=== PATIENT | male | born 1980 | race Caucasian/White ===

== ENCOUNTER → 2020-05-17 10:30 | Outpatient (BNVA) | payer MEDICARE, MEDICAID, SELFPAY | PROVIDERS: Visit Provider Nurse Practitioner Family | DX: M47.816 Spondylosis without myelopathy or radiculopathy, lumbar region (principal); M96.1 Postlaminectomy syndrome, not elsewhere classified; E66.01 Morbid (severe) obesity due to excess calories; G47.33 Obstructive sleep apnea (adult) (pediatric) | CPT/HCPCS: 99202 ==

== ENCOUNTER → 2020-06-14 13:52 | Outpatient (BNVA) | payer MEDICARE, MEDICAID, SELFPAY | PROVIDERS: Visit Provider Anesthesiology | DX: Z76.89 Persons encountering health services in other specified circumstances (principal) ==

== ENCOUNTER → 2020-07-15 13:59 | Outpatient (BNVA) | payer OTHER, MEDICARE, MEDICAID, SELFPAY | PROVIDERS: Visit Provider Anesthesiology | DX: M47.816 Spondylosis without myelopathy or radiculopathy, lumbar region (principal); M96.1 Postlaminectomy syndrome, not elsewhere classified; E66.01 Morbid (severe) obesity due to excess calories; G47.33 Obstructive sleep apnea (adult) (pediatric); Z79.891 Long term (current) use of opiate analgesic | CPT/HCPCS: 99212 ==

== ENCOUNTER → 2020-08-09 15:20 | Outpatient (BNVA) | payer OTHER, MEDICARE, MEDICAID, SELFPAY | PROVIDERS: Visit Provider Anesthesiology | DX: M47.816 Spondylosis without myelopathy or radiculopathy, lumbar region (principal); M96.1 Postlaminectomy syndrome, not elsewhere classified; E66.01 Morbid (severe) obesity due to excess calories; G47.33 Obstructive sleep apnea (adult) (pediatric) | CPT/HCPCS: 99212 ==

== ENCOUNTER → 2020-10-13 13:44 | Outpatient (BNVA) | payer OTHER, MEDICAID, SELFPAY | PROVIDERS: PCP Physician Assistant; Visit Provider Anesthesiology | DX: M47.816 Spondylosis without myelopathy or radiculopathy, lumbar region (principal); M96.1 Postlaminectomy syndrome, not elsewhere classified; E66.01 Morbid (severe) obesity due to excess calories; G47.33 Obstructive sleep apnea (adult) (pediatric) | CPT/HCPCS: 99212 ==

== ENCOUNTER → 2020-11-11 14:52 | Outpatient (BNVA) | payer OTHER, MEDICAID, SELFPAY | PROVIDERS: PCP Physician Assistant; Visit Provider Anesthesiology | DX: M47.816 Spondylosis without myelopathy or radiculopathy, lumbar region (principal); M96.1 Postlaminectomy syndrome, not elsewhere classified; E66.01 Morbid (severe) obesity due to excess calories; G47.33 Obstructive sleep apnea (adult) (pediatric); N31.9 Neuromuscular dysfunction of bladder, unspecified | CPT/HCPCS: 99212 ==

== ENCOUNTER → 2020-12-09 14:57 | Outpatient (BNVA) | payer OTHER, MEDICAID, SELFPAY | PROVIDERS: PCP Physician Assistant; Visit Provider Anesthesiology | DX: M47.816 Spondylosis without myelopathy or radiculopathy, lumbar region (principal); M96.1 Postlaminectomy syndrome, not elsewhere classified; M48.00 Spinal stenosis, site unspecified; G89.4 Chronic pain syndrome; E66.01 Morbid (severe) obesity due to excess calories; G47.33 Obstructive sleep apnea (adult) (pediatric); R19.7 Diarrhea, unspecified; N31.9 Neuromuscular dysfunction of bladder, unspecified; N39.498 Other specified urinary incontinence; Z88.0 Allergy status to penicillin; Z88.8 Allergy status to other drugs, medicaments and biological substances; Z91.041 Radiographic dye allergy status; Z91.02 Food additives allergy status | CPT/HCPCS: 99212 ==

== ENCOUNTER 2021-01-10 10:35 | Outpatient (REF) | payer OTHER, SELFPAY | END 2021-01-10 10:36 | disposition home or self-care (01) | LOC: HO.LAB 10:35 | PROVIDERS: PCP Physician Assistant; Visit Provider Anesthesiology | DX: M47.816 Spondylosis without myelopathy or radiculopathy, lumbar region (principal); M96.1 Postlaminectomy syndrome, not elsewhere classified; E66.01 Morbid (severe) obesity due to excess calories; G47.33 Obstructive sleep apnea (adult) (pediatric); Z79.891 Long term (current) use of opiate analgesic | CPT/HCPCS: 99212 ==

== ENCOUNTER → 2021-02-07 09:57 | Outpatient (BNVA) | payer OTHER, SELFPAY | PROVIDERS: PCP Physician Assistant; Visit Provider Anesthesiology | DX: M47.816 Spondylosis without myelopathy or radiculopathy, lumbar region (principal); M96.1 Postlaminectomy syndrome, not elsewhere classified; G47.33 Obstructive sleep apnea (adult) (pediatric); E66.01 Morbid (severe) obesity due to excess calories; Z79.899 Other long term (current) drug therapy | CPT/HCPCS: 99212 ==

== ENCOUNTER → 2021-03-07 09:29 | Outpatient (BNVA) | payer OTHER, SELFPAY | PROVIDERS: PCP Physician Assistant; Visit Provider Anesthesiology | DX: Z51.81 Encounter for therapeutic drug level monitoring (principal); M47.816 Spondylosis without myelopathy or radiculopathy, lumbar region; M96.1 Postlaminectomy syndrome, not elsewhere classified; E66.01 Morbid (severe) obesity due to excess calories; G47.33 Obstructive sleep apnea (adult) (pediatric); Z68.43 Body mass index [BMI] 50.0-59.9, adult | CPT/HCPCS: 99212 ==

== ENCOUNTER 2021-03-22 06:16 | Outpatient (REF) | payer OTHER, SELFPAY ==
--- NOTE | ~2021-03-22 | FL_ITS ---
EXAMINATION: XR FLUOROSCOPY WITH IMAGES CLINICAL INFORMATION: Chronic pain syndrome. COMPARISON: None. TECHNIQUE: Fluoroscopy performed by Dr. Molina. Fluoroscopy time: 0.4 minutes DAP: 12.0 Gycm2 Images: 2 FL/FL guidance in treatment room FINDINGS/IMPRESSION: Fluoroscopy was performed for procedural guidance. Please refer to the procedure report for more detailed findings.
== END 2021-03-22 06:17 | disposition home or self-care (01) ==
LOC: HO.RADIR 06:16
PROVIDERS: Visit Provider Anesthesiology
DX: G89.4 Chronic pain syndrome (principal); M48.00 Spinal stenosis, site unspecified
CPT/HCPCS: 62323; Q9967

== ENCOUNTER → 2021-03-28 09:26 | Outpatient (BNVA) | payer OTHER, SELFPAY | PROVIDERS: PCP Physician Assistant; Visit Provider Anesthesiology | DX: M47.816 Spondylosis without myelopathy or radiculopathy, lumbar region (principal); M96.1 Postlaminectomy syndrome, not elsewhere classified; E66.01 Morbid (severe) obesity due to excess calories; G47.33 Obstructive sleep apnea (adult) (pediatric) | CPT/HCPCS: 99212 ==

== ENCOUNTER 2021-07-08 05:57 | Day surgery (SDC) | payer OTHER, SELFPAY ==
[2021-07-04 14:57] VITALS: BMI 52.4
[2021-07-05 09:49] VITALS: BMI 51.6
--- NOTE | 2021-07-06 12:45 | P.CONAN_ITS ---
Documented by User: Lindsay Brantley NP 07/06/21 12:47 HPI - Anesthesia Eval Consult details Narrative: 41yo M for ?Intrathecal Drug Delivery Implant *Multiple Med Allergies* PMFSH Active Problems Active Problems: All Active Problems (Updated 07/05/21 @ 09:54 by Radha Camara, NEHEMIAS) Facet arthropathy, lumbar (Acute) Post laminectomy syndrome (Acute) Morbid obesity (Acute) Obstructive sleep apnea (Acute) Chronic pain syndrome (Acute) Neurogenic bladder (Acute) Central stenosis of spinal canal (Acute) Past Medical History Medical History (Updated 07/05/21 @ 09:54 by Radha Camara, NEHEMIAS) Anxiety Asthma Central stenosis of spinal canal Chronic back pain Chronic pain syndrome Depression Diabetes Elevated cholesterol HTN (hypertension) Neurogenic bladder On pre-exposure prophylaxis for HIV Osteoarthritis Postoperative nausea Surgical History Surgical History (Updated 07/05/21 @ 09:47 by Radha Camara RN) History of back surgery Hx of cholecystectomy Hx of toe surgery Social History Social History Household Members Other:: aunt Are you a primary resident care supervisor to a significant other at home: No Do you presently have visiting nurse or other home services: No Patient Tobacco Use Status: Former Tobacco user Quit Date: 2001 Tobacco use type: Cigarette Use of substances other than those prescribed or required for medical reasons: No Have you been hit, kicked, punched, or otherwise hurt by someone within the past year? If so, by whom?: No Are you DNR?: No Advance Directives: No Advance Directives Information Provided: Yes Advance Directives on File: No Meds Allergies Allergy/AdvReac Type Severity Reaction Status Date / Time cephalexin Allergy Severe vomiting,ra Verified 07/08/21 06:18 sh Iodinated Contrast Allergy Severe DIFFICULTY Verified 07/08/21 06:18 Media [IV DYE, IODINE BREATHING CONTAINING CONTRAST ] propranolol Allergy Severe DIFFICULTY Verified 07/08/21 06:18 [PROPRANOLOL] BREATHING AND CP tramadol [From Allergy Severe VOMITING Verified 07/08/21 06:18 ULTRAM] AND SEVERE HEADACHES verapamil Allergy Severe severe Verified 07/08/21 06:18 chest pain thuan Allergy Intermediate RASH Verified 07/08/21 06:18 penicillin V Allergy Unknown Pt does Verified 07/08/21 06:18 not remember hydromorphone AdvReac Severe migraine/na Verified 07/08/21 06:18 [From Dilaudid] usea sumatriptan [From AdvReac Severe NAUSEA & Verified 07/08/21 06:18 IMITREX] VOMITING Home Medications Medication Instructions Recorded Confirmed Last Taken Type atorvastatin 40 40 mg PO BEDTIME 05/17/20 07/05/21 Unknown History mg tablet emtricitabine 200 1 tab PO DAILY 05/17/20 07/05/21 Unknown History mg-tenofovir disoproxil fumarate 300 mg tablet (Truvada) fluticasone 1 puff 05/17/20 07/05/21 Unknown History propionate 110 INHALATION BID mcg/actuation HFA aerosol inhaler (Flovent HFA) lisinopril 40 mg 40 mg PO DAILY 05/17/20 07/05/21 Unknown History tablet metformin 1,000 1,000 mg PO BID 05/17/20 07/05/21 Unknown History mg tablet prochlorperazine 10 mg PO Q8H PRN 05/17/20 07/05/21 Unknown History maleate 10 mg tablet (Compazine) venlafaxine 150 187.5 mg PO 05/17/20 07/05/21 Unknown History mg DAILY capsule,extended release 24 hr (Effexor XR) pregabalin 150 mg 150 mg PO TID 01/10/21 07/05/21 Unknown History capsule liraglutide 0.6 1.2 mg SUBCUT 07/05/21 07/05/21 Unknown History mg/0.1 mL (18 DAILY mg/3 mL) subcutaneous pen injector (Victoza 3-Cruz) clonidine HCl 0.1 1 tab PO BID 07/08/21 07/08/21 Unknown History mg tablet Exam Exam Date and Time: July 06, 2021 1245 Height,Weight and Vital Signs: Height 6 ft 2 in Weight 182.344 kg Assessment and Plan Assessment Anesthesia Assessment: Chart Reviewed Documented by User: Maikol Rm MD 07/08/21 07:08 [facility] Past Medical History Medical History (Updated 07/05/21 @ 09:54 by Radha Camara RN) Anxiety Asthma Central stenosis of spinal canal Chronic back pain Chronic pain syndrome Depression Diabetes Elevated cholesterol HTN (hypertension) Neurogenic bladder On pre-exposure prophylaxis for HIV Osteoarthritis Postoperative nausea Family History Family history of problems with anesthesia: No Surgical History Surgical History (Updated 07/05/21 @ 09:47 by Radha Camara RN) History of back surgery Hx of cholecystectomy Hx of toe surgery History of Problems with Anesthesia: No Social History Social History Household Members Other:: aunt Are you a primary resident care supervisor to a significant other at home: No Do you presently have visiting nurse or other home services: No Patient Tobacco Use Status: Former Tobacco user Quit Date: 2001 Tobacco use type: Cigarette Use of substances other than those prescribed or required for medical reasons: No Have you been hit, kicked, punched, or otherwise hurt by someone within the past year? If so, by whom?: No Are you DNR?: No Advance Directives: No Advance Directives Information Provided: Yes Advance Directives on File: No Meds Allergies Allergy/AdvReac Type Severity Reaction Status Date / Time cephalexin Allergy Severe vomiting,ra Verified 07/08/21 06:18 sh Iodinated Contrast Allergy Severe DIFFICULTY Verified 07/08/21 06:18 Media [IV DYE, IODINE BREATHING CONTAINING CONTRAST ] propranolol Allergy Severe DIFFICULTY Verified 07/08/21 06:18 [PROPRANOLOL] BREATHING AND CP tramadol [From Allergy Severe VOMITING Verified 07/08/21 06:18 ULTRAM] AND SEVERE HEADACHES verapamil Allergy Severe severe Verified 07/08/21 06:18 chest pain thuan Allergy Intermediate RASH Verified 07/08/21 06:18 penicillin V Allergy Unknown Pt does Verified 07/08/21 06:18 not remember hydromorphone AdvReac Severe migraine/na Verified 07/08/21 06:18 [From Dilaudid] usea sumatriptan [From AdvReac Severe NAUSEA & Verified 07/08/21 06:18 IMITREX] VOMITING Home Medications Medication Instructions Recorded Confirmed Last Taken Type atorvastatin 40 40 mg PO BEDTIME 05/17/20 07/05/21 Unknown History mg tablet emtricitabine 200 1 tab PO DAILY 05/17/20 07/05/21 Unknown History mg-tenofovir disoproxil fumarate 300 mg tablet (Truvada) fluticasone 1 puff 05/17/20 07/05/21 Unknown History propionate 110 INHALATION BID mcg/actuation HFA aerosol inhaler (Flovent HFA) lisinopril 40 mg 40 mg PO DAILY 05/17/20 07/05/21 Unknown History tablet metformin 1,000 1,000 mg PO BID 05/17/20 07/05/21 Unknown History mg tablet prochlorperazine 10 mg PO Q8H PRN 05/17/20 07/05/21 Unknown History maleate 10 mg tablet (Compazine) venlafaxine 150 187.5 mg PO 05/17/20 07/05/21 Unknown History mg DAILY capsule,extended release 24 hr (Effexor XR) pregabalin 150 mg 150 mg PO TID 01/10/21 07/05/21 Unknown History capsule liraglutide 0.6 1.2 mg SUBCUT 07/05/21 07/05/21 Unknown History mg/0.1 mL (18 DAILY mg/3 mL) subcutaneous pen injector (Victoza 3-Cruz) clonidine HCl 0.1 1 tab PO BID 07/08/21 07/08/21 Unknown History mg tablet Exam Airway Mallampati Class: IV TM Dist: >3cm Neck ROM: Full Assessment and Plan Assessment Anesthesia Assessment: Anesthesia Plan Discussed Final Anesthetic Review Family History of Problems with Anesthesia: No History of Problems with Anesthesia: No NPO: Yes ASA Class: III Final Preanesthetic Review: No Changes in Pt Med Stat, Meds/Allgs Chart Reviewed, Consent Obtained/Reviewed and Anes Risks/Benef Reviewed Patient Risk: Intermediate Procedure Risk: Intermediate Anesthetic Plan Anesthetic Plan: GA Disposition: Standard PACU
--- NOTE | 2021-07-06 12:45 | HO.ANESPROP2 ---
Documented by User: Lindsay Brantley NP 07/06/21 12:47 HPI - Anesthesia Eval Consult details Narrative: 41yo M for ?Intrathecal Drug Delivery Implant *Multiple Med Allergies* PMFSH Active Problems Active Problems: All Active Problems (Updated 07/05/21 @ 09:54 by Radha Camara, NEHEMIAS) Facet arthropathy, lumbar (Acute) Post laminectomy syndrome (Acute) Morbid obesity (Acute) Obstructive sleep apnea (Acute) Chronic pain syndrome (Acute) Neurogenic bladder (Acute) Central stenosis of spinal canal (Acute) Past Medical History Medical History (Updated 07/05/21 @ 09:54 by Radha Camara, NEHEMIAS) Anxiety Asthma Central stenosis of spinal canal Chronic back pain Chronic pain syndrome Depression Diabetes Elevated cholesterol HTN (hypertension) Neurogenic bladder On pre-exposure prophylaxis for HIV Osteoarthritis Postoperative nausea Surgical History Surgical History (Updated 07/05/21 @ 09:47 by Radha Camara RN) History of back surgery Hx of cholecystectomy Hx of toe surgery Social History Social History Household Members Other:: aunt Are you a primary career based intervention coordinator to a significant other at home: No Do you presently have visiting nurse or other home services: No Patient Tobacco Use Status: Former Tobacco user Quit Date: 2001 Tobacco use type: Cigarette Use of substances other than those prescribed or required for medical reasons: No Have you been hit, kicked, punched, or otherwise hurt by someone within the past year? If so, by whom?: No Are you DNR?: No Advance Directives: No Advance Directives Information Provided: Yes Advance Directives on File: No Meds Allergies Allergy/AdvReac Type Severity Reaction Status Date / Time cephalexin Allergy Severe vomiting,ra Verified 07/08/21 06:18 sh Iodinated Contrast Media Allergy Severe DIFFICULTY Verified 07/08/21 06:18 [IV DYE, IODINE CONTAINING BREATHING CONTRAST ] propranolol [PROPRANOLOL] Allergy Severe DIFFICULTY Verified 07/08/21 06:18 BREATHING AND CP tramadol [From ULTRAM] Allergy Severe VOMITING Verified 07/08/21 06:18 AND SEVERE HEADACHES verapamil Allergy Severe severe Verified 07/08/21 06:18 chest pain thuan Allergy Intermediate RASH Verified 07/08/21 06:18 penicillin V Allergy Unknown Pt does Verified 07/08/21 06:18 not remember hydromorphone [From Dilaudid] AdvReac Severe migraine/na Verified 07/08/21 06:18 usea sumatriptan [From IMITREX] AdvReac Severe NAUSEA & Verified 07/08/21 06:18 VOMITING Home Medications Medication Instructions Recorded Confirmed Last Taken Type atorvastatin 40 mg tablet 40 mg PO BEDTIME 05/17/20 07/05/21 Unknown History emtricitabine 200 mg-tenofovir 1 tab PO DAILY 05/17/20 07/05/21 Unknown History disoproxil fumarate 300 mg tablet (Truvada) fluticasone propionate 110 1 puff INHALATION BID 05/17/20 07/05/21 Unknown History mcg/actuation HFA aerosol inhaler (Flovent HFA) lisinopril 40 mg tablet 40 mg PO DAILY 05/17/20 07/05/21 Unknown History metformin 1,000 mg tablet 1,000 mg PO BID 05/17/20 07/05/21 Unknown History prochlorperazine maleate 10 mg 10 mg PO Q8H PRN 05/17/20 07/05/21 Unknown History tablet (Compazine) venlafaxine 150 mg 187.5 mg PO DAILY 05/17/20 07/05/21 Unknown History capsule,extended release 24 hr (Effexor XR) pregabalin 150 mg capsule 150 mg PO TID 01/10/21 07/05/21 Unknown History liraglutide 0.6 mg/0.1 mL (18 mg/3 1.2 mg SUBCUT DAILY 07/05/21 07/05/21 Unknown History mL) subcutaneous pen injector (Victoza 3-Cruz) clonidine HCl 0.1 mg tablet 1 tab PO BID 07/08/21 07/08/21 Unknown History Exam Exam Date and Time: July 06, 2021 1245 Height,Weight and Vital Signs: Height 6 ft 2 in Weight 182.344 kg Assessment and Plan Assessment Anesthesia Assessment: Chart Reviewed Documented by User: Maikol Rm MD 07/08/21 07:08 [facility] Past Medical History Medical History (Updated 07/05/21 @ 09:54 by Radha Camara RN) Anxiety Asthma Central stenosis of spinal canal Chronic back pain Chronic pain syndrome Depression Diabetes Elevated cholesterol HTN (hypertension) Neurogenic bladder On pre-exposure prophylaxis for HIV Osteoarthritis Postoperative nausea Family History Family history of problems with anesthesia: No Surgical History Surgical History (Updated 07/05/21 @ 09:47 by Radha Camara RN) History of back surgery Hx of cholecystectomy Hx of toe surgery History of Problems with Anesthesia: No Social History Social History Household Members Other:: aunt Are you a primary career based intervention coordinator to a significant other at home: No Do you presently have visiting nurse or other home services: No Patient Tobacco Use Status: Former Tobacco user Quit Date: 2001 Tobacco use type: Cigarette Use of substances other than those prescribed or required for medical reasons: No Have you been hit, kicked, punched, or otherwise hurt by someone within the past year? If so, by whom?: No Are you DNR?: No Advance Directives: No Advance Directives Information Provided: Yes Advance Directives on File: No Meds Allergies Allergy/AdvReac Type Severity Reaction Status Date / Time cephalexin Allergy Severe vomiting,ra Verified 07/08/21 06:18 sh Iodinated Contrast Media Allergy Severe DIFFICULTY Verified 07/08/21 06:18 [IV DYE, IODINE CONTAINING BREATHING CONTRAST ] propranolol [PROPRANOLOL] Allergy Severe DIFFICULTY Verified 07/08/21 06:18 BREATHING AND CP tramadol [From ULTRAM] Allergy Severe VOMITING Verified 07/08/21 06:18 AND SEVERE HEADACHES verapamil Allergy Severe severe Verified 07/08/21 06:18 chest pain thuan Allergy Intermediate RASH Verified 07/08/21 06:18 penicillin V Allergy Unknown Pt does Verified 07/08/21 06:18 not remember hydromorphone [From Dilaudid] AdvReac Severe migraine/na Verified 07/08/21 06:18 usea sumatriptan [From IMITREX] AdvReac Severe NAUSEA & Verified 07/08/21 06:18 VOMITING Home Medications Medication Instructions Recorded Confirmed Last Taken Type atorvastatin 40 mg tablet 40 mg PO BEDTIME 05/17/20 07/05/21 Unknown History emtricitabine 200 mg-tenofovir 1 tab PO DAILY 05/17/20 07/05/21 Unknown History disoproxil fumarate 300 mg tablet (Truvada) fluticasone propionate 110 1 puff INHALATION BID 05/17/20 07/05/21 Unknown History mcg/actuation HFA aerosol inhaler (Flovent HFA) lisinopril 40 mg tablet 40 mg PO DAILY 05/17/20 07/05/21 Unknown History metformin 1,000 mg tablet 1,000 mg PO BID 05/17/20 07/05/21 Unknown History prochlorperazine maleate 10 mg 10 mg PO Q8H PRN 05/17/20 07/05/21 Unknown History tablet (Compazine) venlafaxine 150 mg 187.5 mg PO DAILY 05/17/20 07/05/21 Unknown History capsule,extended release 24 hr (Effexor XR) pregabalin 150 mg capsule 150 mg PO TID 01/10/21 07/05/21 Unknown History liraglutide 0.6 mg/0.1 mL (18 mg/3 1.2 mg SUBCUT DAILY 07/05/21 07/05/21 Unknown History mL) subcutaneous pen injector (Victoza 3-Cruz) clonidine HCl 0.1 mg tablet 1 tab PO BID 07/08/21 07/08/21 Unknown History Exam Airway Mallampati Class: IV TM Dist: >3cm Neck ROM: Full Assessment and Plan Assessment Anesthesia Assessment: Anesthesia Plan Discussed Final Anesthetic Review Family History of Problems with Anesthesia: No History of Problems with Anesthesia: No NPO: Yes ASA Class: III Final Preanesthetic Review: No Changes in Pt Med Stat, Meds/Allgs Chart Reviewed, Consent Obtained/Reviewed and Anes Risks/Benef Reviewed Patient Risk: Intermediate Procedure Risk: Intermediate Anesthetic Plan Anesthetic Plan: GA Disposition: Standard PACU
--- NOTE | 2021-07-07 14:02 | MHC.SHP ---
Pre-Procedural Eval Section A Date of Service: 07/07/21 The patient is an INPATIENT: No Changes since office visit: Yes Patient answered all questions The History & Physical has been completed within 30 days and I have reviewed it.: No Section B Chief Complaint: Chronic Pain syndrome, Post laminectomy syndrome Details of Present Illness: as above Relevant Family History (Specify if Yes): No Relevant Social History: None Present Medications: see Short Stay Collaborative assessment Medical History: Significant History History of Previous Operations: Relevant previous surgery/procedure and date(s) Allergies: Allergies Allergy/AdvReac Type Severity Reaction Status Date / Time cephalexin Allergy Severe vomiting,ra Verified 07/05/21 10:00 sh Iodinated Contrast Media Allergy Severe DIFFICULTY Verified 07/05/21 10:00 [IV DYE, IODINE CONTAINING BREATHING CONTRAST ] propranolol [PROPRANOLOL] Allergy Severe DIFFICULTY Verified 07/05/21 10:00 BREATHING AND CP tramadol [From ULTRAM] Allergy Severe VOMITING Verified 07/05/21 10:00 AND SEVERE HEADACHES verapamil Allergy Severe severe Verified 07/05/21 10:00 chest pain thuan Allergy Intermediate RASH Verified 07/05/21 10:00 penicillin V Allergy Unknown Pt does Verified 07/05/21 10:00 not remember hydromorphone [From Dilaudid] AdvReac Severe migraine/na Verified 07/05/21 10:00 usea sumatriptan [From IMITREX] AdvReac Severe NAUSEA & Verified 07/05/21 10:00 VOMITING Review of Systems Sugical H&P ROS: Yes, Specify: Constitution ( Morbid obesity) Exam Surgical H&P Exam: Normal: HEENT, Normal: Heart, Normal: Lungs, Normal: Extremities, Normal: Skin and Normal: Neurological and Significant Findings: Abdomen ( greatly enlarged secondary to fat) Plan Diagnosis/Plan: Unchanged I have reviewed the history and physical and performed a pertinent physical examination on my patient. No changes have occurred unless specified.
[2021-07-08] VITALS (7 sets, daily range): BP systolic 128–181; BP diastolic 80–101; PULSE 70–96; RESP 16–18; TEMP 36.4–36.9; O2SAT 90–98
--- NOTE | ~2021-07-08 | FL_ITS ---
EXAMINATION: XR FLUOROSCOPY WITH IMAGES CLINICAL INFORMATION: Intrathecal drug implant COMPARISON: Previous exam March 2021 TECHNIQUE: Fluoroscopy performed by Dr. Govind Molina. Fluoroscopy time: 0.7 minutes DAP: 16 mGycm2 Images: 2 FINDINGS: There are postoperative changes to the lumbar spine. PA image demonstrates catheter projecting over the central lower thoracic and upper lumbar spine. FL/FL guidance in OR IMPRESSION: Fluoroscopy guidance for pain management procedure.
[2021-07-08 06:40] LABS: Glucose, Whole Blood 121 mg/dL (60-115)
[2021-07-08] MEDS: Lactated Ringers 1,000 ML 100 ML IVCONT (06:46)
--- NOTE | 2021-07-08 10:53 | P.BOP_ITS ---
Brief Operative Note Date of Service: 07/08/21 Pre-op diagnosis: postlaminectomy syndrome, chronic pain syndrome. Post-op diagnosis: same Procedure: Implantation of intrathecal drug delivery system pain pump [employer] and intrathecal catheter Ascenda ( [employer]). Implants: As above Surgeon: Govind Molina MD Anesthesia: GETA Was an Compressor Battery Pellets used for this Procedure?: No Estimated blood loss (mL): 38 Pathology: none sent Condition: stable Disposition: PACU
--- NOTE | 2021-07-08 10:55 | P.OP_ITS ---
Operative Note Operative Note Date of Service: 07/08/21 Narrative: After obtaining informed consent and explaining to the patient risks, benefits and alternatives to treat his pain, the patient was brought up to the operating room where he was positioned supine on the stretcher.? [place] [employer] monitors were applied and general anesthesia was induced with endotracheal intubation.? After that the patient was transferred to the operating table in the prone positioon.? All pressure points were protected.? The patient received antibiotic clindamycin 900 mg intravenously 30 minutes before incision. Time-out was performed delineating correct site and side of the procedure, name and date of of the patient, risk of fire, need for antibiotic prophylaxis risk of DVT and need for DVT prophylaxis. ? After that the patient entire back? and left upper buttock were prepped with Chloraprep and draped with full body drape including ioban film. Sterilely drape C-arm was brought over the OR field and square pictures of the L1, L2, L3 vertebrae were demonstrated on the screen. hardware was noted in vertebra is L2 through L5 in the form of pedicle screws and fixation rods. Also intra vertebral spacers replacing the discs were noted on the screen.the entrance p oint? for the catheter was chosen as the L1-L2 interspace Since it is the only entrance point available for the insertion. In the strict midline fashion 8.5 cm vertical skin incision was made with #10 scalpel. The incision was widened with the Weitlaner retractor and deepened with electrocautery. Thorough hemostasis was obtained using electrocautery. The prevertebral fascia was freed from overlaying tissues. After that 100 mm introducer spinal 16 g needle was incerted under x-ray guidance in the projection of the right L3 pedicle on AP view. The needle advanced under the x- ray guidance with intemittent A-P? and lateral pictures toward the spinal canal. When on the lateral view the needle entered the spinal canal the stylet was removed and the clear flow of the CSF was obtain through the needle hub. Intrathecal Ascenda catheter was inserted through the needle and advanced under the x-ray guidance toward the T8 mid body vertebral body projection. The stylet was removed from the catheter and the flow of CSF fluid straw colored and clear was observed coming from the catheter.? Purse-string suture was applied surrounding? the a needle and it was tied.? After that the needle was withdrawn with care taken to keep the catheter in place.? Anchoring device was dislodged on the catheter and advanced until it met prevertebral fascia.? It was engaged on the body of the catheter.? Two anchoring Tycron sutures were used to suture left wing of the anchor to prevertebral fascia and 2 anchoring sutures Tycron was used to stitch in the right wing of anchoring device to prevertebral fascia. ?After that the thorough irrigation of the wound was performed and wound was packed with vancomycin soaked 4 x 4. Attention then was concentrated on the patient's left upper buttock.Sterilely draped C-arm was brought over the operative field again and position of the patient's ? Left iliac crest was demonstrated on the screen.? 2 cm below the projection of the? left iliac crest? to the skin of the local anesthetic lidocaine plus bupivacaine 1-1 was injected in the linear horizontal fashion.? After that 10 cm incision was performed in patient's? left upper buttock alongside the injected line. ? Thorough hemostasis was obtained using cautery device.? After that the wound was widened and made 3 cm deep .? The wound was extended medially and laterally as well as caudally and cranially to form the space to accommodate the body of the pump.? Thorough hemostasis was performed.? The wound was irrigated with vancomycin containing normal saline and then tunneling device was used to connect both wounds and dislodged the intrathecal catheter into the side wound.? The catheter was trimmed appropriately after that and sutureless connection device was mounted on the catheter.? After that sutureless connection device was connected to the pump.? Aspiration of the side port of the pump revealed clear flow of CSF.? Two anchoring 1-0 Tycron sutures were applied in most SUPERIOR MEDIAL AND SUPERIOR LATERAL CORNERS OF THE WOUND .? After that the sutures were connected to the brackets on the body of the pump, intrathecal catheter was gathered behind the body of the pump and pump was dislodged into the wound.? After that the anchoring sutures were tied.? After that noncoring needle was used again to reach side port of the pump in clear flow of CSF 0.5 mL was demonstrated in the syringe connected to the noncoring needle. ? Thorough irrigation was performed again in both wounds.? Thorough hemostasis was verified.? 0 polisorb sutures were used to close both wounds, 2-0 suture of the same nature were used to approximate the skin.? Watson were applied to the skin line and Bacitracin ointment was applied to the staple lines.? Sterile dressing with sterile 4x4s was performed, abdominal binder was applied.? Upon completion of the procedure patient was awaken extubated and taken outside of the operating room to recovery room where HE recovered uneventfully.? HE went home without immediate complications.
[2021-07-08] MEDS: oxyCODONE HCl Immed Release 5 MG TABLET 10 MG PO (11:11)
== END 2021-07-08 12:34 | disposition home or self-care (01) ==
PROVIDERS: PCP Physician Assistant; Visit Provider Anesthesiology
PROC: (CPT 62350; principal; 2021-07-08 07:30)
DX: M47.816 Spondylosis without myelopathy or radiculopathy, lumbar region (principal); M96.1 Postlaminectomy syndrome, not elsewhere classified; G89.4 Chronic pain syndrome; M48.061 Spinal stenosis, lumbar region without neurogenic claudication; N31.9 Neuromuscular dysfunction of bladder, unspecified; I10 Essential (primary) hypertension; E11.9 Type 2 diabetes mellitus without complications; G47.33 Obstructive sleep apnea (adult) (pediatric); F32.9 Major depressive disorder, single episode, unspecified; E66.01 Morbid (severe) obesity due to excess calories; Z68.43 Body mass index [BMI] 50.0-59.9, adult; Z79.899 Other long term (current) drug therapy; Z79.84 Long term (current) use of oral hypoglycemic drugs; Z90.49 Acquired absence of other specified parts of digestive tract; Z88.0 Allergy status to penicillin; Z88.8 Allergy status to other drugs, medicaments and biological substances; Z91.041 Radiographic dye allergy status; Z87.891 Personal history of nicotine dependence
CPT/HCPCS: 62350; 62362; 82947; C1755; C1772; J1100; J2250; J2405; J2765; J3010; J3370

== ENCOUNTER → 2021-07-14 09:27 | Outpatient (BNVA) | payer OTHER, SELFPAY | PROVIDERS: PCP Physician Assistant; Visit Provider Anesthesiology | DX: M47.816 Spondylosis without myelopathy or radiculopathy, lumbar region (principal); M96.1 Postlaminectomy syndrome, not elsewhere classified; E66.01 Morbid (severe) obesity due to excess calories; G47.33 Obstructive sleep apnea (adult) (pediatric) | CPT/HCPCS: 99212 ==

== ENCOUNTER → 2021-07-21 09:25 | Outpatient (BNVA) | payer OTHER, SELFPAY | PROVIDERS: PCP Physician Assistant; Visit Provider Anesthesiology | DX: M47.816 Spondylosis without myelopathy or radiculopathy, lumbar region (principal); M96.1 Postlaminectomy syndrome, not elsewhere classified; E66.01 Morbid (severe) obesity due to excess calories; G47.33 Obstructive sleep apnea (adult) (pediatric) | CPT/HCPCS: 99212 ==

== ENCOUNTER → 2021-08-08 16:28 | Outpatient (BNVA) | payer OTHER, SELFPAY | PROVIDERS: PCP Physician Assistant; Visit Provider Anesthesiology | DX: M47.816 Spondylosis without myelopathy or radiculopathy, lumbar region (principal); M96.1 Postlaminectomy syndrome, not elsewhere classified; E66.01 Morbid (severe) obesity due to excess calories; Z68.43 Body mass index [BMI] 50.0-59.9, adult; G47.33 Obstructive sleep apnea (adult) (pediatric); Z79.899 Other long term (current) drug therapy; Z98.890 Other specified postprocedural states | CPT/HCPCS: 99212 ==

== ENCOUNTER 2021-08-16 05:59 | Outpatient (REF) | payer OTHER, SELFPAY | END 2021-08-16 06:00 | disposition home or self-care (01) | LOC: HO.RADIR 05:59 | PROVIDERS: Visit Provider Anesthesiology | DX: M47.816 Spondylosis without myelopathy or radiculopathy, lumbar region (principal); M96.1 Postlaminectomy syndrome, not elsewhere classified; E66.01 Morbid (severe) obesity due to excess calories; G47.33 Obstructive sleep apnea (adult) (pediatric) | CPT/HCPCS: 62370 ==

== ENCOUNTER 2021-09-27 06:11 | Outpatient (REF) | payer OTHER, SELFPAY | END 2021-09-27 06:12 | disposition home or self-care (01) | LOC: HO.RADIR 06:11 | PROVIDERS: Visit Provider Anesthesiology | DX: Z13.89 Encounter for screening for other disorder (principal) ==

== ENCOUNTER → 2021-10-05 15:48 | Outpatient (BNVA) | payer OTHER, SELFPAY | PROVIDERS: PCP Physician Assistant; Visit Provider Nurse Practitioner Family | DX: Z45.1 Encounter for adjustment and management of infusion pump (principal); M47.816 Spondylosis without myelopathy or radiculopathy, lumbar region; M96.1 Postlaminectomy syndrome, not elsewhere classified; E66.01 Morbid (severe) obesity due to excess calories; Z97.8 Presence of other specified devices; Z68.43 Body mass index [BMI] 50.0-59.9, adult | CPT/HCPCS: 99212 ==

== ENCOUNTER 2021-10-26 06:11 | Outpatient (REF) | payer OTHER, SELFPAY | END 2021-10-26 06:12 | disposition home or self-care (01) | LOC: HO.RADIR 06:11 | PROVIDERS: Visit Provider Internal Medicine | DX: Z45.1 Encounter for adjustment and management of infusion pump (principal); Z97.8 Presence of other specified devices | CPT/HCPCS: 62370 ==

== ENCOUNTER → 2021-11-03 12:47 | Outpatient (BNVA) | payer OTHER, SELFPAY | PROVIDERS: PCP Physician Assistant; Visit Provider Internal Medicine | DX: Z97.8 Presence of other specified devices (principal) | CPT/HCPCS: 99212 ==

== ENCOUNTER → 2021-11-11 15:32 | Outpatient (BNVA) | payer OTHER, SELFPAY | PROVIDERS: Visit Provider Nurse Practitioner Family | DX: Z13.89 Encounter for screening for other disorder (principal) | CPT/HCPCS: Q3014 ==

== ENCOUNTER → 2021-11-17 13:39 | Outpatient (BNVA) | payer OTHER, SELFPAY | PROVIDERS: PCP Physician Assistant; Visit Provider Internal Medicine | DX: G89.4 Chronic pain syndrome (principal); Z97.8 Presence of other specified devices | CPT/HCPCS: 62370 ==

== ENCOUNTER → 2021-11-30 11:21 | Outpatient (BNVA) | payer OTHER, SELFPAY | PROVIDERS: PCP Physician Assistant; Visit Provider Anesthesiology | DX: G89.4 Chronic pain syndrome (principal); Z97.8 Presence of other specified devices | CPT/HCPCS: 99212 ==

== ENCOUNTER → 2022-01-02 10:52 | Outpatient (BNVA) | payer OTHER, SELFPAY | PROVIDERS: PCP Physician Assistant; Visit Provider Anesthesiology | DX: M47.816 Spondylosis without myelopathy or radiculopathy, lumbar region (principal); M96.1 Postlaminectomy syndrome, not elsewhere classified; E66.01 Morbid (severe) obesity due to excess calories; G47.33 Obstructive sleep apnea (adult) (pediatric); Z68.43 Body mass index [BMI] 50.0-59.9, adult | CPT/HCPCS: 99212 ==

== ENCOUNTER → 2022-02-06 12:42 | Outpatient (BNVA) | payer OTHER, SELFPAY | PROVIDERS: PCP Physician Assistant; Visit Provider Anesthesiology | DX: M47.816 Spondylosis without myelopathy or radiculopathy, lumbar region (principal); M96.1 Postlaminectomy syndrome, not elsewhere classified; E66.01 Morbid (severe) obesity due to excess calories; G47.33 Obstructive sleep apnea (adult) (pediatric); Z45.1 Encounter for adjustment and management of infusion pump; Z68.43 Body mass index [BMI] 50.0-59.9, adult | CPT/HCPCS: 62370; 99212 ==

== ENCOUNTER → 2022-04-17 12:54 | Outpatient (BNVA) | payer OTHER, SELFPAY | PROVIDERS: PCP Physician Assistant; Visit Provider Anesthesiology | DX: M47.816 Spondylosis without myelopathy or radiculopathy, lumbar region (principal); M96.1 Postlaminectomy syndrome, not elsewhere classified; E66.01 Morbid (severe) obesity due to excess calories; G47.33 Obstructive sleep apnea (adult) (pediatric) | CPT/HCPCS: 62370; 99212 ==

== ENCOUNTER → 2022-06-21 12:44 | Outpatient (BNVA) | payer OTHER, SELFPAY | PROVIDERS: PCP Physician Assistant; Visit Provider Anesthesiology | DX: M96.1 Postlaminectomy syndrome, not elsewhere classified (principal); E66.01 Morbid (severe) obesity due to excess calories | CPT/HCPCS: 99212 ==

== ENCOUNTER → 2022-06-26 12:52 | Outpatient (BNVA) | payer OTHER, SELFPAY | PROVIDERS: PCP Physician Assistant; Visit Provider Anesthesiology | DX: Z45.42 Encounter for adjustment and management of neurostimulator (principal); M47.816 Spondylosis without myelopathy or radiculopathy, lumbar region; M96.1 Postlaminectomy syndrome, not elsewhere classified; E66.01 Morbid (severe) obesity due to excess calories; G47.33 Obstructive sleep apnea (adult) (pediatric); D84.9 Immunodeficiency, unspecified; Z68.42 Body mass index [BMI] 45.0-49.9, adult; Z79.899 Other long term (current) drug therapy | CPT/HCPCS: 62370; 99212 ==

== ENCOUNTER 2022-07-11 06:16 | Outpatient (REF) | payer OTHER, SELFPAY ==
--- NOTE | ~2022-07-11 | FL_ITS ---
EXAMINATION: XR FLUOROSCOPY WITH IMAGES CLINICAL INFORMATION: M25.511 - Pain in right shoulder COMPARISON: None. TECHNIQUE: Fluoroscopy Supervised By: Dr. Govind Molina. Fluoroscopy Time: 0.2 minutes. Cumulative Dose: 5.94 mGy. DAP: 1.62 Gycm2. Images: 2. FINDINGS: There is spinal needle overlying the superior medial right humeral head. Intracapsular contrast is demonstrated. FL/FL guidance in treatment room IMPRESSION: Fluoroscopy for pain management procedure.
== END 2022-07-11 06:17 | disposition home or self-care (01) ==
LOC: CF 06:16
PROVIDERS: Visit Provider Anesthesiology
DX: M19.011 Primary osteoarthritis, right shoulder (principal)
CPT/HCPCS: 20610; J2795; J3301

== ENCOUNTER → 2022-08-14 14:13 | Outpatient (BNVA) | payer OTHER, SELFPAY | PROVIDERS: PCP Physician Assistant; Visit Provider Anesthesiology | DX: M47.816 Spondylosis without myelopathy or radiculopathy, lumbar region (principal); M96.1 Postlaminectomy syndrome, not elsewhere classified; E66.01 Morbid (severe) obesity due to excess calories; Z68.42 Body mass index [BMI] 45.0-49.9, adult; G47.33 Obstructive sleep apnea (adult) (pediatric) | CPT/HCPCS: 99212 ==

== ENCOUNTER → 2022-08-30 12:52 | Outpatient (BNVA) | payer OTHER, SELFPAY | PROVIDERS: PCP Physician Assistant; Visit Provider Anesthesiology | DX: M47.816 Spondylosis without myelopathy or radiculopathy, lumbar region (principal); M96.1 Postlaminectomy syndrome, not elsewhere classified; M25.561 Pain in right knee; M25.562 Pain in left knee; M19.011 Primary osteoarthritis, right shoulder; M48.00 Spinal stenosis, site unspecified; E66.01 Morbid (severe) obesity due to excess calories; G47.33 Obstructive sleep apnea (adult) (pediatric); G89.4 Chronic pain syndrome; Z97.8 Presence of other specified devices; Z68.42 Body mass index [BMI] 45.0-49.9, adult | CPT/HCPCS: 99212 ==

== ENCOUNTER → 2022-09-15 12:55 | Outpatient (BNVA) | payer OTHER, SELFPAY | PROVIDERS: PCP Physician Assistant; Visit Provider Nurse Practitioner Family | DX: G43.109 Migraine with aura, not intractable, without status migrainosus (principal); G43.709 Chronic migraine without aura, not intractable, without status migrainosus; G47.00 Insomnia, unspecified | CPT/HCPCS: 99202 ==

== ENCOUNTER → 2022-10-12 08:12 | Outpatient (BNVA) | payer OTHER, SELFPAY | PROVIDERS: PCP Physician Assistant; Visit Provider Psychiatry & Neurology Neurology | DX: G43.109 Migraine with aura, not intractable, without status migrainosus (principal); G43.709 Chronic migraine without aura, not intractable, without status migrainosus | CPT/HCPCS: 64615; 99211; J0585 ==

== ENCOUNTER → 2022-11-08 12:51 | Outpatient (BNVA) | payer OTHER, SELFPAY | PROVIDERS: PCP Physician Assistant; Visit Provider Anesthesiology | DX: Z45.1 Encounter for adjustment and management of infusion pump (principal); G89.4 Chronic pain syndrome; M96.1 Postlaminectomy syndrome, not elsewhere classified; M47.816 Spondylosis without myelopathy or radiculopathy, lumbar region; E66.01 Morbid (severe) obesity due to excess calories; G47.33 Obstructive sleep apnea (adult) (pediatric); M25.561 Pain in right knee; M25.562 Pain in left knee; M19.011 Primary osteoarthritis, right shoulder; M48.00 Spinal stenosis, site unspecified | CPT/HCPCS: 62370; 99212 ==

== ENCOUNTER → 2022-11-27 15:14 | Outpatient (BNVA) | payer OTHER, SELFPAY | PROVIDERS: PCP Physician Assistant; Visit Provider Anesthesiology | DX: M47.816 Spondylosis without myelopathy or radiculopathy, lumbar region (principal); M96.1 Postlaminectomy syndrome, not elsewhere classified; M25.561 Pain in right knee; M25.562 Pain in left knee; M19.011 Primary osteoarthritis, right shoulder; M48.00 Spinal stenosis, site unspecified; E66.01 Morbid (severe) obesity due to excess calories; G47.33 Obstructive sleep apnea (adult) (pediatric); G89.4 Chronic pain syndrome; Z97.8 Presence of other specified devices; Z68.41 Body mass index [BMI] 40.0-44.9, adult | CPT/HCPCS: 99212 ==

== ENCOUNTER → 2022-12-04 14:21 | Outpatient (BNVA) | payer OTHER, SELFPAY | PROVIDERS: PCP Physician Assistant; Visit Provider Anesthesiology | DX: M47.816 Spondylosis without myelopathy or radiculopathy, lumbar region (principal); M96.1 Postlaminectomy syndrome, not elsewhere classified; M25.561 Pain in right knee; M25.562 Pain in left knee; M19.011 Primary osteoarthritis, right shoulder; M48.00 Spinal stenosis, site unspecified; G47.33 Obstructive sleep apnea (adult) (pediatric); G89.4 Chronic pain syndrome; E66.01 Morbid (severe) obesity due to excess calories; Z97.8 Presence of other specified devices; Z68.41 Body mass index [BMI] 40.0-44.9, adult | CPT/HCPCS: 99212; J2795 ==

== ENCOUNTER 2022-12-05 07:06 | Outpatient (REF) | payer OTHER, SELFPAY ==
--- NOTE | ~2022-12-05 | FL_ITS ---
EXAMINATION: XR FLUOROSCOPY WITH IMAGES CLINICAL INFORMATION: Pain in right knee. COMPARISON: None available. TECHNIQUE: Fluoroscopy Supervised By: Dr. Molina. Fluoroscopy Time: 0.2 minutes. Cumulative Dose: 5.16 mGy. DAP: 1.40 Gycm2. Images: 2. FINDINGS: Images demonstrate 2 needles adjacent to the distal femur and 1 needle adjacent to the medial proximal tibia for geniculate nerve injection FL/FL guidance in treatment room IMPRESSION: Fluoroscopy guidance for pain management procedure
== END 2022-12-05 07:07 | disposition home or self-care (01) ==
LOC: CF 07:06
PROVIDERS: PCP Physician Assistant; Visit Provider Anesthesiology
DX: M17.11 Unilateral primary osteoarthritis, right knee (principal); M25.562 Pain in left knee
CPT/HCPCS: 64454; J2795

== ENCOUNTER → 2022-12-07 10:13 | Outpatient (BNVA) | payer OTHER, SELFPAY | PROVIDERS: PCP Physician Assistant; Visit Provider Anesthesiology | DX: M48.061 Spinal stenosis, lumbar region without neurogenic claudication (principal); M96.1 Postlaminectomy syndrome, not elsewhere classified; M19.011 Primary osteoarthritis, right shoulder; M25.562 Pain in left knee; M25.561 Pain in right knee; G89.4 Chronic pain syndrome; D84.9 Immunodeficiency, unspecified; E66.01 Morbid (severe) obesity due to excess calories; Z68.41 Body mass index [BMI] 40.0-44.9, adult; Z90.3 Acquired absence of stomach [part of]; Z98.84 Bariatric surgery status; Z96.82 Presence of neurostimulator; Z79.899 Other long term (current) drug therapy | CPT/HCPCS: 99212 ==

== ENCOUNTER 2022-12-19 07:12 | Outpatient (REF) | payer OTHER, SELFPAY ==
--- NOTE | ~2022-12-19 | FL_ITS ---
EXAMINATION: XR FLUOROSCOPY WITH IMAGES CLINICAL INFORMATION: Knee injection COMPARISON: None available. TECHNIQUE: Fluoroscopy Supervised By: Dr. Govind Molina. Fluoroscopy Time: 0.3 minutes. Cumulative Dose: 10.0 mGy. DAP: 0.175 Gycm2. Images: 4. FINDINGS: Metallic instrument superimposes over the medial proximal tibia. Needle projects over the medial margin of the proximal tibial metaphysis. [place] project over the distal femur FL/FL guidance in treatment room IMPRESSION: Imaging assistance provided during a fluoroscopic procedure
== END 2022-12-19 07:13 | disposition home or self-care (01) ==
LOC: CF 07:12
PROVIDERS: PCP Physician Assistant; Visit Provider Anesthesiology
DX: M17.12 Unilateral primary osteoarthritis, left knee (principal); M17.11 Unilateral primary osteoarthritis, right knee
CPT/HCPCS: 64450; 64454

== ENCOUNTER 2022-12-19 13:01 | Outpatient (AMB) | payer OTHER, SELFPAY ==
--- NOTE | 2022-12-19 13:14 | MHC.OFFVIS ---
Intake Vital Signs 12/19/22 13:15 12/19/22 14:09 Height 6 ft 2 in 6 ft 2 in Weight 350 lb 350 lb BMI 44.9 44.9 BP 136/84 116/70 Blood Pressure Location Rt brachial Rt brachial Position Sitting Sitting Respiration 16 16 Pulse 80 106 H Pulse Source Pulse Oximeter Pulse Oximeter Pulse Oximetry (%) 98 96 Oxygen Delivery Method Room Air Room Air Comment Pre-op Post-op Intake Visit Reasons: L DX GNB/LOCAL Allergies cephalexin Allergy (Severe, Verified 12/19/22 13:15) vomiting,rash Iodinated Contrast Media [IV DYE, IODINE CONTAINING CONTRAST ] Allergy (Severe, Verified 12/19/22 13:15) DIFFICULTY BREATHING propranolol [PROPRANOLOL] Allergy (Severe, Verified 12/19/22 13:15) DIFFICULTY BREATHING AND CP tramadol [From ULTRAM] Allergy (Severe, Verified 12/19/22 13:15) VOMITING AND SEVERE HEADACHES verapamil Allergy (Severe, Verified 12/19/22 13:15) severe chest pain thuan Allergy (Intermediate, Verified 12/19/22 13:15) RASH naratriptan Allergy (Unknown, Verified 12/19/22 13:15) Unknown penicillin V Allergy (Unknown, Verified 12/19/22 13:15) Pt does not remember Penicillins Allergy (Unknown, Verified 12/19/22 13:15) Unknown rizatriptan Allergy (Unknown, Verified 12/19/22 13:15) Unknown shellfish derived Allergy (Unknown, Verified 12/19/22 13:15) Unknown Sulfa (Sulfonamide Antibiotics) Allergy (Unknown, Verified 12/19/22 13:15) Unknown dexamethasone Allergy (Verified 12/19/22 13:15) Unknown hydromorphone [From Dilaudid] Adverse Reaction (Severe, Verified 12/19/22 13:15) migraine/nausea sumatriptan [From IMITREX] Adverse Reaction (Severe, Verified 12/19/22 13:15) NAUSEA & VOMITING diphenhydramine [From Benadryl] Adverse Reaction (Unknown, Verified 12/19/22 13:15) Unknown [facility] Medical History Anxiety Asthma Central stenosis of spinal canal Chronic back pain Chronic pain syndrome Depression Diabetes Elevated cholesterol HTN (hypertension) Neurogenic bladder On pre-exposure prophylaxis for HIV Osteoarthritis Postoperative nausea Surgical History H/O gastric bypass History of back surgery Hx of cholecystectomy Hx of toe surgery Family History Father Myocardial infarction Mother Myocardial infarction Cerebrovascular accident (CVA) COPD (chronic obstructive pulmonary disease) Sister Seizures Brother Cerebrovascular accident (CVA) Social History Household Members Other:: aunt Are you a primary day care center director to a significant other at home: No Do you presently have visiting nurse or other home services: No Alcohol intake: never Patient Tobacco Use Status: Former Tobacco user Quit Date: 2001 Tobacco use type: Cigarette Substance Use Type: Marijuana Physical Exam Vital Signs: Last Vital Signs Pulse 106 H 12/19/22 14:09 Resp 16 12/19/22 14:09 BP 116/70 12/19/22 14:09 Pulse Ox 96 12/19/22 14:09 Oxygen Delivery Method Room Air 12/19/22 14:09 BMI result Body Mass Index 44.9 Assessment & Plan Assessment & Plan (1) Pain in both knees: Code(s): M25.561 - Pain in right knee; M25.562 - Pain in left knee Plan: Left diagnostic genicular nerve block. Informed consent was explained to the patient. All questions were explained and answered. The patient was taken inside the operating room. The patient was positioned supine on operating table with her left leg elevated on a gel bin. Time-out was performed delineating correct site, side, the nature of the procedure, patient's allergy, preoperative antibiotic if needed. All operating room staff was participating in OR time-out procedure. C-arm was brought over the operating field and picture of the left knee was demonstrated on the screen. Anterolateral and anteromedial surfaces of the knee as well as lower leg and the lower thigh were prepped with chloroprep and draped with utility towels. The point of interest were delineated for: FOR: superior lateral genicular nerve (branch of lateral femoral cutaneous nerve) as the connection of the metaphysis of the leftt femur with corresponding diaphysis on the lateral silhouette of the femur distal bone, For superior medial genicular nerve (suprapatellar saphenous nerve) the point of interest was delineated is the connection of metaphysis of left femur with corresponding diaphysis on the medial silhouette on the femoral distal bone. For inferior medial genicular nerve (infrapatellar saphenous nerve) the point of interest was delineated as connection of metaphysis of the proximal tibia on the medial side with corresponding diaphysis of the same bone. The projections of the points of interest on anterior surface of the right knee was injected with small amount of lidocaine 2% 1-to 2 ml. After that to needles 22 gauge 3-1/2 inch long were driven to were the point of interest in tunnel vision fashion. When the needle gently contacted the bones the C arm view was turned lateral , care was taken to superimpose condyles of the knee. With condyles superimpsed the needles were adjusted the way the tips of the needle positioned at the middle of the shaft of the bone. After that injection of ropivacaine o.5% 1 to 1.5 mls was performed at each needle location. the needles were removed and bandaids were applied. the patient tolerated the procedure very well. (2) Arthritis of knee, right: Code(s): M17.11 - Unilateral primary osteoarthritis, right knee Orders: Orders FL guidance in treatment room Today M17.12 - Unilateral primary osteoarthritis, left knee Coding Level of Care Code Procedure Only Diagnoses Pain in both knees M25.561; M25.562 Arthritis of knee, right M17.11
[2022-12-19 13:15] VITALS: BP 136/84; PULSE 80; RESP 16; O2SAT 98; BMI 44.9
[2022-12-19 14:09] VITALS: BP 116/70; PULSE 106; RESP 16; O2SAT 96; BMI 44.9
== END 2022-12-19 13:58 | disposition home or self-care (01) ==
LOC: HO.PMCPRC 13:01
PROVIDERS: PCP Physician Assistant; Visit Provider Anesthesiology
DX: M25.562 Pain in left knee (principal)
CPT/HCPCS: 64454

== ENCOUNTER 2022-12-25 12:35 | Outpatient (AMB) | payer OTHER, SELFPAY ==
--- NOTE | 2022-12-25 12:59 | A.OFFVIS_ITS ---
Intake Vital Signs 12/25/22 13:05 Height 6 ft 2 in Weight 350 lb BMI 44.9 BP 122/72 Blood Pressure Location Rt brachial Position Sitting Respiration 16 Pulse 98 Pulse Source Pulse Oximeter Pulse Oximetry (%) 97 Oxygen Delivery Method Room Air Intake Visit Reasons: L DX GNB 12/12/22 Intake Note: patient comes in for post-op. Allergies cephalexin Allergy (Severe, Verified 12/25/22 13:05) vomiting,rash Iodinated Contrast Media [IV DYE, IODINE CONTAINING CONTRAST ] Allergy (Severe, Verified 12/25/22 13:05) DIFFICULTY BREATHING propranolol [PROPRANOLOL] Allergy (Severe, Verified 12/25/22 13:05) DIFFICULTY BREATHING AND CP tramadol [From ULTRAM] Allergy (Severe, Verified 12/25/22 13:05) VOMITING AND SEVERE HEADACHES verapamil Allergy (Severe, Verified 12/25/22 13:05) severe chest pain thuan Allergy (Intermediate, Verified 12/25/22 13:05) RASH naratriptan Allergy (Unknown, Verified 12/25/22 13:05) Unknown penicillin V Allergy (Unknown, Verified 12/25/22 13:05) Pt does not remember Penicillins Allergy (Unknown, Verified 12/25/22 13:05) Unknown rizatriptan Allergy (Unknown, Verified 12/25/22 13:05) Unknown shellfish derived Allergy (Unknown, Verified 12/25/22 13:05) Unknown Sulfa (Sulfonamide Antibiotics) Allergy (Unknown, Verified 12/25/22 13:05) Unknown dexamethasone Allergy (Verified 12/25/22 13:05) Unknown hydromorphone [From Dilaudid] Adverse Reaction (Severe, Verified 12/25/22 13:05) migraine/nausea sumatriptan [From IMITREX] Adverse Reaction (Severe, Verified 12/25/22 13:05) NAUSEA & VOMITING diphenhydramine [From Benadryl] Adverse Reaction (Unknown, Verified 12/25/22 13:05) Unknown HPI HPI Comments History of Present Illness Details Gil is today in my office with the results of diagnostic genicular nerve block on the left knee he reports complete pain relief for the 1st 6 hours after the procedure 100% pain relief. He reports better mobility with the left knee better activities of daily living better social interactions. He reports it is much better than the pain relief from the right knee for the same kind of the injection was done previously. He is interested in performing radiofrequency ablation of the left knee genicular nerves. A limitations of the procedure in terms of pain relief for prolonged period of time were explained to the patient's. The 1st procedure may relieve his pain for the 12-18 months, while 2nd procedure if prepared may make his pain better for the shorter period of time. He understood the limitations risks and benefits and he would like to proceed with RFA of the left genicular nerves. Prior: For right genicular nerve diagnostic injection he reported preoperatively his pain was 5/10. Postoperatively immediately after the procedure he felt good pain relieve 0/10. However on the 1st hour after procedure he had pain 3/10 2nd hour he had again pain 3/10 at 03:00 hours after the procedure his pain was 2/10 and it 6 hours after the procedure he had pain still 3/10. A therefore it is less than 50% pain improvement. I cannot offer him radiofrequency ablation at least for the right knee. We still may try left knee genicular nerve block as we planned before. May be will have better results for the left knee. I discussed with the patient today possibility of treating his pain with intra-articular steroid injections. However as the patient who recently had gastric bypass surgery he is at risk of developing gastric ulcers. And the long-acting steroids may instigate development of the gastric ulcers. I requested him to go to his bariatric surgeon and ask him if injection of the steroids into the knee would not result in any complications from bariatric standpoint. Patient will give me a call to schedule the injection into the knee if the surgeon would not mind steroid intra-articular injections for him. We also discussed intrathecal drug delivery pain pump. He reports that after removal of bupivacaine he starts to feel better with urination. However his pain is getting stronger as well. We are waiting for next refill to put fentanyl into his pump system. In the past we tried Prialt for this patient, he had psychotic side effects on Prialt. [facility] Medical History Anxiety Asthma Central stenosis of spinal canal Chronic back pain Chronic pain syndrome Depression Diabetes Elevated cholesterol HTN (hypertension) Neurogenic bladder On pre-exposure prophylaxis for HIV Osteoarthritis Postoperative nausea Surgical History H/O gastric bypass History of back surgery Hx of cholecystectomy Hx of toe surgery Family History Father Myocardial infarction Mother Myocardial infarction Cerebrovascular accident (CVA) COPD (chronic obstructive pulmonary disease) Sister Seizures Brother Cerebrovascular accident (CVA) Social History Household Members Other:: aunt Are you a primary youth career specialist to a significant other at home: No Do you presently have visiting nurse or other home services: No Alcohol intake: never Patient Tobacco Use Status: Former Tobacco user Quit Date: 2001 Tobacco use type: Cigarette Substance Use Type: Marijuana Review of Systems Const All systems reviewed & are unremarkable except as noted in HPI and below Physical Exam Vital Signs: Last Vital Signs Pulse 98 12/25/22 13:05 Resp 16 12/25/22 13:05 BP 122/72 12/25/22 13:05 Pulse Ox 97 12/25/22 13:05 Oxygen Delivery Method Room Air 12/25/22 13:05 BMI result Body Mass Index 44.9 Const General: cooperative and no acute distress Nutritional Appearance: obese morbidly obese Orientation/consciousness: patient oriented x3 Resp Effort & Inspection: normal respiratory effort, able to speak in complete sentences and no audible wheezes Back/Spine/Pelvis Other: Morbidly obese Cervical Spine: normal cervical lordosis Thoracic/Lumbar Spine: thoracic and lumbar spine normal to inspection Pelvis: no pain with anterior-posterior compression and no pain with lateral compression Neuro General: patient oriented x3 Psych Mental Status: mental status grossly normal Speech and movement: Clear speech present Attitude: cooperative Assessment & Plan Assessment & Plan (1) Facet arthropathy, lumbar: Code(s): M47.816 - Spondylosis without myelopathy or radiculopathy, lumbar region (2) Post laminectomy syndrome: Code(s): M96.1 - Postlaminectomy syndrome, not elsewhere classified Plan: Left Genicular nerve block resulted in excellent pain relief unlike the right genicular nerve block. I will schedule him for radiofrequency ablation of the left genicular nerve. Intra-articular steroid injection into the knees was also discussed with the patient, we are waiting for the clearance from Dr. Kristy Garcia who is this patient's bariatric surgeon who apparently approved intra-articular knee steroid injections even though patient had bariatric surgery.. The results of the right genicular nerve injections were less encouraging. Less than 50% pain decrease which is not enough for me to perform RFA. PNS was discussed. Injections associated with PNS were discussed. Treatment of the pain in the right knee with intra-articular steroid injections was discussed. As of this pump medication removal of bupivacaine improved his urinary retention. However it did not eliminate urinary retention completely. We are waiting for new batch of the medication substituting his morphine with fentanyl. Unfortunately hydromorphone gives patient severe headache. (3) Morbid obesity: Code(s): E66.01 - Morbid (severe) obesity due to excess calories Plan: The plan of care is as above. If urinary retention will continue we would need to replace morphine in his pump. (4) Obstructive sleep apnea: Code(s): G47.33 - Obstructive sleep apnea (adult) (pediatric) (5) Pain in both knees: Code(s): M25.561 - Pain in right knee; M25.562 - Pain in left knee (6) Presence of intrathecal pump: Code(s): Z97.8 - Presence of other specified devices (7) Arthritis of shoulder region, right, degenerative: Code(s): M19.011 - Primary osteoarthritis, right shoulder (8) Central stenosis of spinal canal: Code(s): M48.00 - Spinal stenosis, site unspecified (9) Chronic pain syndrome: Code(s): G89.4 - Chronic pain syndrome Plan PHQ-9 SCORE: 11 OPIOID RISK STRATIFICATION SURVEY SCORE: 24. 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 He is immunocompromised individual. . Coding Level of Care Code Est Pt Level 4 (56404) Diagnoses Facet arthropathy, lumbar M47.816 Post laminectomy syndrome M96.1 Morbid obesity E66.01 Obstructive sleep apnea G47.33 Pain in both knees M25.561; M25.562 Presence of intrathecal pump Z97.8 Arthritis of shoulder region, right, degenerative M19.011 Central stenosis of spinal canal M48.00 Chronic pain syndrome G89.4
[2022-12-25 13:05] VITALS: BP 122/72; PULSE 98; RESP 16; O2SAT 97; BMI 44.9
== END 2022-12-25 13:49 | disposition home or self-care (01) ==
PROVIDERS: PCP Physician Assistant; Visit Provider Anesthesiology
DX: M47.816 Spondylosis without myelopathy or radiculopathy, lumbar region (principal); M96.1 Postlaminectomy syndrome, not elsewhere classified; E66.01 Morbid (severe) obesity due to excess calories; G47.33 Obstructive sleep apnea (adult) (pediatric); M25.561 Pain in right knee; M25.562 Pain in left knee; Z97.8 Presence of other specified devices; M19.011 Primary osteoarthritis, right shoulder; M48.00 Spinal stenosis, site unspecified; G89.4 Chronic pain syndrome
CPT/HCPCS: 99214

== ENCOUNTER → 2022-12-25 12:35 | Outpatient (BNVA) | payer OTHER, SELFPAY | PROVIDERS: PCP Physician Assistant; Visit Provider Anesthesiology | DX: M96.1 Postlaminectomy syndrome, not elsewhere classified (principal); M47.816 Spondylosis without myelopathy or radiculopathy, lumbar region; E66.01 Morbid (severe) obesity due to excess calories; G47.33 Obstructive sleep apnea (adult) (pediatric); M25.561 Pain in right knee; M25.562 Pain in left knee; M19.011 Primary osteoarthritis, right shoulder; M48.00 Spinal stenosis, site unspecified; G89.4 Chronic pain syndrome; Z97.8 Presence of other specified devices | CPT/HCPCS: 99212 ==

== ENCOUNTER 2023-01-30 08:52 | Outpatient (AMB) | payer OTHER, SELFPAY ==
[2023-01-30 08:53] VITALS: BP 108/78; PULSE 76; O2SAT 97; BMI 45.1
--- NOTE | 2023-01-30 08:53 | A.OFFVIS_ITS ---
Intake Vital Signs 01/30/23 08:53 Height 6 ft 2 in Weight 351 lb BMI 45.1 BP 108/78 Blood Pressure Location Lt brachial Position Sitting Pulse 76 Pulse Source Pulse Oximeter Pulse Oximetry (%) 97 Oxygen Delivery Method Room Air Intake Visit Reasons: Botox-confirmed Intake Note: Pt presents in office for Botox Bottom Liquor Attendant Required: No Allergies cephalexin Allergy (Severe, Verified 01/30/23 08:57) vomiting,rash Iodinated Contrast Media [IV DYE, IODINE CONTAINING CONTRAST ] Allergy (Severe, Verified 01/30/23 08:57) DIFFICULTY BREATHING propranolol [PROPRANOLOL] Allergy (Severe, Verified 01/30/23 08:57) DIFFICULTY BREATHING AND CP tramadol [From ULTRAM] Allergy (Severe, Verified 01/30/23 08:57) VOMITING AND SEVERE HEADACHES verapamil Allergy (Severe, Verified 01/30/23 08:57) severe chest pain thuan Allergy (Intermediate, Verified 01/30/23 08:57) RASH naratriptan Allergy (Unknown, Verified 01/30/23 08:57) Unknown penicillin V Allergy (Unknown, Verified 01/30/23 08:57) Pt does not remember Penicillins Allergy (Unknown, Verified 01/30/23 08:57) Unknown rizatriptan Allergy (Unknown, Verified 01/30/23 08:57) Unknown shellfish derived Allergy (Unknown, Verified 01/30/23 08:57) Unknown Sulfa (Sulfonamide Antibiotics) Allergy (Unknown, Verified 01/30/23 08:57) Unknown dexamethasone Allergy (Verified 01/30/23 08:57) Unknown hydromorphone [From Dilaudid] Adverse Reaction (Severe, Verified 01/30/23 08:57) migraine/nausea sumatriptan [From IMITREX] Adverse Reaction (Severe, Verified 01/30/23 08:57) NAUSEA & VOMITING diphenhydramine [From Benadryl] Adverse Reaction (Unknown, Verified 01/30/23 08:57) Unknown Medication List - Last Reconciled 01/30/23 by Vonnie Ragsdale MD albuterol sulfate 90 mcg/actuation (Ventolin HFA) 0 mcg inhalation aripiprazole 0 mg PO atorvastatin 40 mg PO BEDTIME cholecalciferol (vitamin D3) 1,250 mcg PO QWEEK dextroamphetamine-amphetamine 10 mg (Adderall) 10 mg PO BID dicyclomine 10 mg PO QID duloxetine 60 mg PO BID emtricitabine-tenofovir (TDF) 200-300 mg (Truvada) 1 tab PO DAILY eszopiclone (Lunesta) 1 mg PO BEDTIME PRN 30 days galcanezumab-gnlm (Emgality) 120 mg subcut hydroxyzine HCl 10 mg PO TID PRN liraglutide (Victoza 3-Cruz) 1.2 mg subcut DAILY lisinopril 40 mg PO DAILY memantine 5 mg PO BID metformin 500 mg PO BID montelukast 10 mg PO BEDTIME nifedipine ER 60 mg PO DAILY onabotulinumtoxinA (Botox) 155 units IM ONCE 12 weeks ondansetron 8 mg PO BID PRN pantoprazole 40 mg PO DAILY prazosin 0 mg PO pregabalin 150 mg PO TID prochlorperazine maleate (Compazine) 10 mg PO Q8H PRN rizatriptan 10 mg PO Q2H PRN 30 days tamsulosin 0.4 mg PO DAILY tizanidine 4 mg PO BID PRN 30 days HPI HPI Comments History of Present Illness Details ? 42y/o male comes for treatment of migraines with botox. ??? Most frequent reported adverse reactions following injection of botox for chronic migraine include neck pain (9%), headache(5%), eyelid ptosis(4%), migraine(4%), muscular weakness(4%), musculuskeletal stiffness(4%), bronchitis(3%), injection site pain (3%), musculoskeletal pain(3%), myalgia(3%), facial paresis(2%), HTN(2%) and muscle spasms(2%) were discussed in detail. ??? Botulinum toxin typeA 200units Lot no [id number] expiration Jul 2025 was diluted with 4 cc of normal saline . ??? Muscles injected- ??? Frontalis 4 sites ??? Procerus 1 site ??? Wrong Address Clerk- 2 sites ??? Temporalis- 8 sites ??? Occipitalis- 6 sites ??? Cervical paraspinals- 4 sites ??? Trapezius- 6 sites- 5 units each ??? 5 units each in 31 site ??? Total use- 155units ??? Discarded-45units [facility] Medical History Anxiety Asthma Central stenosis of spinal canal Chronic back pain Chronic pain syndrome Depression Diabetes Elevated cholesterol HTN (hypertension) Neurogenic bladder On pre-exposure prophylaxis for HIV Osteoarthritis Postoperative nausea Surgical History H/O gastric bypass History of back surgery Hx of cholecystectomy Hx of toe surgery Family History Father Myocardial infarction Mother Myocardial infarction Cerebrovascular accident (CVA) COPD (chronic obstructive pulmonary disease) Sister Seizures Brother Cerebrovascular accident (CVA) Social History Household Members Other:: aunt Are you a primary personal care service provider to a significant other at home: No Do you presently have visiting nurse or other home services: No Alcohol intake: former Patient Tobacco Use Status: Former Tobacco user Quit Date: 2001 Tobacco use type: Cigarette Physical Exam Vital Signs: Last Vital Signs Pulse 76 01/30/23 08:53 BP 108/78 01/30/23 08:53 Pulse Ox 97 01/30/23 08:53 Oxygen Delivery Method Room Air 01/30/23 08:53 BMI result Body Mass Index 45.1 HEENT Other: No palpable scalp tenderness. Head: Yes normocephalic Resp Effort & Inspection: normal respiratory effort and able to speak in complete sentences Neuro Other: Photophobic Cranial nerves: Yes CN's II-XII intact bilaterally Cognition (Neuro): normal cognition Gait exam (Neuro): Assistive device used (cane) Pupils: Normal pupillary reactivity/response: bilateral Office Procedures Botulinum toxin Injection 76817 - Migraine Procedure code (CPT) selection complete Office Meds onabotulinumtoxinA Performing Provider: Vonnie Ragsdale MD Administered by: Vonnie Ragsdale MD on 01/30/23 09:32 Dose Route Admin Location Lot Number Expiration Date [facility] Automatic Car Wash Attendant 155 unit subcut [id number] 07/12/25 7440-1032-72 [employer] Comments: see hpi Assessment & Plan Assessment & Plan (1) Chronic migraine without aura: Code(s): G43.709 - Chronic migraine without aura, not intractable, without status migrainosus Plan patient tolerated the procedure well He will call with any side effects. Orders: Orders AMB Botulinum toxin Injection - Patient Supplied Today G43.709 - Chronic migraine without aura, not intractable, without status migrainosus Coding Level of Care Code Est Pt Level 1 (17768) Diagnoses Chronic migraine without aura G43.709 CPT Codes Botox Injection - Botox 3: 08586 - Migraine ([id number])
== END 2023-01-30 09:23 | disposition home or self-care (01) ==
PROVIDERS: Visit Provider Psychiatry & Neurology Neurology
DX: G43.709 Chronic migraine without aura, not intractable, without status migrainosus (principal)
CPT/HCPCS: 64615

== ENCOUNTER → 2023-01-30 08:52 | Outpatient (BNVA) | payer OTHER, SELFPAY | PROVIDERS: Visit Provider Psychiatry & Neurology Neurology | DX: G43.709 Chronic migraine without aura, not intractable, without status migrainosus (principal) | CPT/HCPCS: 64615; 99211; J0585 ==

== ENCOUNTER 2023-01-31 13:36 | Outpatient (AMB) | payer OTHER, SELFPAY ==
--- NOTE | 2023-01-31 13:38 | MHC.OFFVIS ---
Intake Vital Signs 01/31/23 14:26 Height 6 ft 2 in Weight 346 lb BMI 44.4 BP 140/60 H Blood Pressure Location Lt brachial Position Sitting Respiration 19 Pulse 91 Pulse Source Pulse Oximeter Pulse Oximetry (%) 97 Oxygen Delivery Method Room Air Intake Visit Reasons: Right intra-articular steroid knee injection Intake Note: patient comes in for right intra articular steroid knee injection. Allergies cephalexin Allergy (Severe, Verified 01/31/23 14:27) vomiting,rash Iodinated Contrast Media [IV DYE, IODINE CONTAINING CONTRAST ] Allergy (Severe, Verified 01/31/23 14:27) DIFFICULTY BREATHING propranolol [PROPRANOLOL] Allergy (Severe, Verified 01/31/23 14:27) DIFFICULTY BREATHING AND CP tramadol [From ULTRAM] Allergy (Severe, Verified 01/31/23 14:27) VOMITING AND SEVERE HEADACHES verapamil Allergy (Severe, Verified 01/31/23 14:27) severe chest pain thuan Allergy (Intermediate, Verified 01/31/23 14:27) RASH naratriptan Allergy (Unknown, Verified 01/31/23 14:27) Unknown penicillin V Allergy (Unknown, Verified 01/31/23 14:27) Pt does not remember Penicillins Allergy (Unknown, Verified 01/31/23 14:27) Unknown rizatriptan Allergy (Unknown, Verified 01/31/23 14:27) Unknown shellfish derived Allergy (Unknown, Verified 01/31/23 14:27) Unknown Sulfa (Sulfonamide Antibiotics) Allergy (Unknown, Verified 01/31/23 14:27) Unknown dexamethasone Allergy (Verified 01/31/23 14:27) Unknown hydromorphone [From Dilaudid] Adverse Reaction (Severe, Verified 01/31/23 14:27) migraine/nausea sumatriptan [From IMITREX] Adverse Reaction (Severe, Verified 01/31/23 14:27) NAUSEA & VOMITING diphenhydramine [From Benadryl] Adverse Reaction (Unknown, Verified 01/31/23 14:27) Unknown [facility] Medical History Anxiety Asthma Central stenosis of spinal canal Chronic back pain Chronic pain syndrome Depression Diabetes Elevated cholesterol HTN (hypertension) Neurogenic bladder On pre-exposure prophylaxis for HIV Osteoarthritis Postoperative nausea Surgical History H/O gastric bypass History of back surgery Hx of cholecystectomy Hx of toe surgery Family History Father Myocardial infarction Mother Myocardial infarction Cerebrovascular accident (CVA) COPD (chronic obstructive pulmonary disease) Sister Seizures Brother Cerebrovascular accident (CVA) Social History Household Members Other:: aunt Are you a primary manager care to a significant other at home: No Do you presently have visiting nurse or other home services: No Alcohol intake: former Patient Tobacco Use Status: Former Tobacco user Quit Date: 2001 Tobacco use type: Cigarette Physical Exam Vital Signs: Last Vital Signs Pulse 91 01/31/23 14:26 Resp 19 01/31/23 14:26 BP 140/60 H 01/31/23 14:26 Pulse Ox 97 01/31/23 14:26 Oxygen Delivery Method Room Air 01/31/23 14:26 BMI result Body Mass Index 44.4 Assessment & Plan Assessment & Plan (1) Arthritis of knee, right: Code(s): M17.11 - Unilateral primary osteoarthritis, right knee Plan: Intra-articular right knee steroid injection. After obtaining informed consent the patient was positioned on the examination table with his right knee exposed. Time-out was performed delineating site and side of the procedure name and date of of the patient. Anterior lateral and anterior surface of the right knee was prepped with ChloraPrep in. Sterilely obtained bupivacaine 0.5% mixed with Kenalog 40 mg was injected into the retropatellar space after aspiration. Aspiration did not demonstrate any blood or synovial fluid coming into the syringe. The patient tolerated procedure fairly well. The needle was removed sterile Band-Aid was applied. He left the office without immediate complications. Coding Level of Care Code Procedure Only Diagnoses Arthritis of knee, right M17.11
[2023-01-31 14:26] VITALS: BP 140/60; PULSE 91; RESP 19; O2SAT 97; BMI 44.4
== END 2023-01-31 14:00 | disposition home or self-care (01) ==
PROVIDERS: PCP Physician Assistant; Visit Provider Anesthesiology
DX: M17.11 Unilateral primary osteoarthritis, right knee (principal)
CPT/HCPCS: 20610

== ENCOUNTER → 2023-01-31 13:36 | Outpatient (BNVA) | payer OTHER, SELFPAY | PROVIDERS: PCP Physician Assistant; Visit Provider Anesthesiology | DX: M17.11 Unilateral primary osteoarthritis, right knee (principal) | CPT/HCPCS: 20610; J3301 ==

== ENCOUNTER 2023-02-02 10:52 | Day surgery (SDC) | payer OTHER, SELFPAY ==
--- NOTE | ~2023-02-02 | FL_ITS ---
EXAMINATION: XR FLUOROSCOPY WITH IMAGES CLINICAL INFORMATION: Left knee genicular cooled RFA. COMPARISON: None available. TECHNIQUE: Fluoroscopy Supervised By: Dr. Govind Molina. Fluoroscopy Time: 0.4 minutes. Cumulative Dose: 9.02 mGy. DAP: 2.37 Gycm2. Images: 4. FINDINGS: Images demonstrate probes projecting over the bilateral distal femoral metaphysis and medial tibial metaphysis for geniculate nerve procedure. FL/FL guidance in OR IMPRESSION: Fluoroscopy guidance for pain management procedure.
[2023-02-02 11:27] VITALS: BP 104/54; PULSE 100; RESP 18; TEMP 36.6; O2SAT 98; BMI 44.9
--- NOTE | 2023-02-02 11:37 | MHC.SHP ---
Pre-Procedural Eval Section A Date of Service: 02/02/23 The patient is an INPATIENT: No Changes since office visit: Yes Patient answered all questions The History & Physical has been completed within 30 days and I have reviewed it.: No Section B Chief Complaint: Pain in left knee Details of Present Illness: as above Relevant Family History (Specify if Yes): No Relevant Social History: None Present Medications: see Short Stay Collaborative assessment Medical History: No relevant PMH History of Previous Operations: No relevant previous surgery Allergies: Allergies Allergy/AdvReac Type Severity Reaction Status Date / Time cephalexin Allergy Severe vomiting,ra Verified 01/31/23 14:27 sh Iodinated Contrast Media Allergy Severe DIFFICULTY Verified 01/31/23 14:27 [IV DYE, IODINE CONTAINING BREATHING CONTRAST ] propranolol [PROPRANOLOL] Allergy Severe DIFFICULTY Verified 01/31/23 14:27 BREATHING AND CP tramadol [From ULTRAM] Allergy Severe VOMITING Verified 01/31/23 14:27 AND SEVERE HEADACHES verapamil Allergy Severe severe Verified 01/31/23 14:27 chest pain thuan Allergy Intermediate RASH Verified 01/31/23 14:27 naratriptan Allergy Unknown Unknown Verified 01/31/23 14:27 penicillin V Allergy Unknown Pt does Verified 01/31/23 14:27 not remember Penicillins Allergy Unknown Unknown Verified 01/31/23 14:27 rizatriptan Allergy Unknown Unknown Verified 01/31/23 14:27 shellfish derived Allergy Unknown Unknown Verified 01/31/23 14:27 Sulfa (Sulfonamide Allergy Unknown Unknown Verified 01/31/23 14:27 Antibiotics) dexamethasone Allergy Unknown Verified 01/31/23 14:27 hydromorphone [From Dilaudid] AdvReac Severe migraine/na Verified 01/31/23 14:27 usea sumatriptan [From IMITREX] AdvReac Severe NAUSEA & Verified 01/31/23 14:27 VOMITING diphenhydramine AdvReac Unknown Unknown Verified 01/31/23 14:27 [From Benadryl] Review of Systems Sugical H&P ROS: Negative: Cardiovascular, Respiratory, Neurological, Psychiatric, Hem-Onc, Gastrointestinal, Genitourinary, Integumentary, Endocrine and Eyes/Ears/Nose/Throat and Yes, Specify: Constitution ( morbid obesity), Allergic/Immunologic (IMMUNOSUPPRESION) and Musculoskeletal (OA knees, POSTLAMINECTOMY SYNDROME) Exam Surgical H&P Exam: Normal: HEENT, Normal: Heart, Normal: Lungs, Normal: Extremities, Normal: Skin and Normal: Neurological and Significant Findings: Abdomen ( ENLARGED DUE TO FAT) Plan Diagnosis/Plan: Unchanged I have reviewed the history and physical and performed a pertinent physical examination on my patient. No changes have occurred unless specified. Time Spent With Patient Time: Total time managing care of this patient today ____ minutes.
[2023-02-02 13:30] VITALS: BP 115/55; PULSE 76; RESP 18; TEMP 36.9; O2SAT 96
--- NOTE | 2023-02-02 13:31 | P.BOP_ITS ---
Brief Operative Note Date of Service: 02/02/23 Pre-op diagnosis: Left knee osteoarthritis Post-op diagnosis: same Procedure: cooled RFA left knee genicular nerves. Surgeon: Govind Molina MD Anesthesia: local Was an Senior Financial Reporting Accountant used for this Procedure?: No Estimated blood loss (mL): 5 Condition: stable Disposition: PACU
--- NOTE | 2023-02-02 13:33 | W.PM.OPN ---
Operative Note Operative Note Date of Service: 02/02/23 Narrative: LEFT KNEE GENICULAR NERVES COOLED RFA. Informed consent was obtained , the patient was brought to the OR and positioned supine on ORT. Time-out was performed delineating correct site, side, the nature of the procedure, patient's allergy, preoperative antibiotic if needed. All operating room staff was participating in OR time-out procedure. C-arm was brought over the operating field and picture of the left knee was demonstrated on the screen. Anterolateral and anteromedial surfaces of the knee were prepped with chloroprep and draped with sterile utility towels.The point of interest were delineated for: superior lateral genicular nerve as the confluence of the metaphysis of the femur with corresponding diaphysis on the lateral silhouette of the femur distal bone,For superior medial genicular nerve (suprapatelar saphenous nerve) the point of interest was delineated as the confluence of the silhouette of the metaphysis of the femur with corresponding diaphysis on the medial silhouette on the femoral distal bone. For inferior medial genicular nerve ( Infrapatellar saphenous nerve) the point of interest was delineated as the confluence of metaphysis of the proximal tibia on the medial side with corresponding diaphysis of the same bone. The projections of the points of interest on anterior surface of the left knee was injected with small amount of mixture of lidocaine 1% and ropivacaine 2% 1-to 2 ml. After that 3 cooled radiofrequency canulas 50 mm long were driven to the point of interest in tunnel vision fashion. When needles gently contacted the bones the position of the C-arm was switched to the lateral view, care was taken to superimpose the the femoral condyles of the knee one over the other. The position of the canulas were adjusted to assure that the tip of the canulas are located at the mid shaft of each of the above described bones. After that small amount of mixture of the same local anesthetic mixture as above and a trace amount of kenalog was injected into each canula position. total amount of local anesthetics was 4.5 cc. The cooled RFA machine was connected to the canulas in usual fashion and energy applied with temperature of the canulas of 60 degrees C, for the 2.5 minutes. When energy application was completed the canulas were removed and sterile dressing was applied. Patient went to PACU where he recovered uneventfully.
[2023-02-02 13:45] VITALS: BP 134/73; PULSE 76; RESP 18; O2SAT 96
== END 2023-02-02 14:02 | disposition home or self-care (01) ==
PROVIDERS: PCP Physician Assistant; Visit Provider Anesthesiology
PROC: (CPT 64624; principal; 2023-02-02 12:10)
DX: M25.562 Pain in left knee (principal); M17.12 Unilateral primary osteoarthritis, left knee; G89.4 Chronic pain syndrome; M47.816 Spondylosis without myelopathy or radiculopathy, lumbar region; M96.1 Postlaminectomy syndrome, not elsewhere classified; I10 Essential (primary) hypertension; E78.00 Pure hypercholesterolemia, unspecified; J45.909 Unspecified asthma, uncomplicated; E11.9 Type 2 diabetes mellitus without complications; N31.9 Neuromuscular dysfunction of bladder, unspecified; E66.01 Morbid (severe) obesity due to excess calories; Z68.41 Body mass index [BMI] 40.0-44.9, adult; F41.1 Generalized anxiety disorder; G47.33 Obstructive sleep apnea (adult) (pediatric); Z97.8 Presence of other specified devices; Z88.0 Allergy status to penicillin; Z88.1 Allergy status to other antibiotic agents; Z88.2 Allergy status to sulfonamides; Z88.8 Allergy status to other drugs, medicaments and biological substances; Z91.041 Radiographic dye allergy status; Z98.84 Bariatric surgery status; Z90.49 Acquired absence of other specified parts of digestive tract; Z98.890 Other specified postprocedural states; F12.90 Cannabis use, unspecified, uncomplicated; Z87.891 Personal history of nicotine dependence
CPT/HCPCS: 64624; J3301

== ENCOUNTER → 2023-02-02 10:52 | Outpatient (BNV) | payer OTHER, SELFPAY | PROVIDERS: PCP Physician Assistant; Visit Provider Anesthesiology | DX: M25.562 Pain in left knee (principal) | CPT/HCPCS: 64624 ==

== ENCOUNTER → 2023-02-14 13:54 | Outpatient (BNVA) | payer OTHER, SELFPAY | PROVIDERS: PCP Physician Assistant; Visit Provider Anesthesiology | DX: Z45.1 Encounter for adjustment and management of infusion pump (principal); M47.816 Spondylosis without myelopathy or radiculopathy, lumbar region; M96.1 Postlaminectomy syndrome, not elsewhere classified | CPT/HCPCS: 99212 ==

== ENCOUNTER 2023-02-21 11:11 | Outpatient (AMB) | payer OTHER, SELFPAY ==
[2023-02-21 12:03] VITALS: BP 142/76; PULSE 110; RESP 17; O2SAT 97; BMI 44.0
--- NOTE | 2023-02-21 12:03 | A.OFFVIS_ITS ---
Intake Vital Signs 02/21/23 12:03 Height 6 ft 2 in Weight 343 lb BMI 44.0 BP 142/76 H Blood Pressure Location Rt brachial Position Sitting Respiration 17 Pulse 110 H Pulse Source Pulse Oximeter Pulse Oximetry (%) 97 Oxygen Delivery Method Room Air Intake Visit Reasons: Pain pump adjustment Intake Note: patient comes in for pain pump adjustment. Allergies cephalexin Allergy (Severe, Verified 02/21/23 12:05) vomiting,rash Iodinated Contrast Media [IV DYE, IODINE CONTAINING CONTRAST ] Allergy (Severe, Verified 02/21/23 12:05) DIFFICULTY BREATHING propranolol [PROPRANOLOL] Allergy (Severe, Verified 02/21/23 12:05) DIFFICULTY BREATHING AND CP tramadol [From ULTRAM] Allergy (Severe, Verified 02/21/23 12:05) VOMITING AND SEVERE HEADACHES verapamil Allergy (Severe, Verified 02/21/23 12:05) severe chest pain thuan Allergy (Intermediate, Verified 02/21/23 12:05) RASH naratriptan Allergy (Unknown, Verified 02/21/23 12:05) Unknown penicillin V Allergy (Unknown, Verified 02/21/23 12:05) Pt does not remember Penicillins Allergy (Unknown, Verified 02/21/23 12:05) Unknown rizatriptan Allergy (Unknown, Verified 02/21/23 12:05) Unknown shellfish derived Allergy (Unknown, Verified 02/21/23 12:05) Unknown Sulfa (Sulfonamide Antibiotics) Allergy (Unknown, Verified 02/21/23 12:05) Unknown dexamethasone Allergy (Verified 02/21/23 12:05) Unknown hydromorphone [From Dilaudid] Adverse Reaction (Severe, Verified 02/21/23 12:05) migraine/nausea sumatriptan [From IMITREX] Adverse Reaction (Severe, Verified 02/21/23 12:05) NAUSEA & VOMITING HPI HPI Comments History of Present Illness Details Gil is back in my office for the follow-up and intrathecal pain pump refill. He reports that his urinary retention is completely eliminated after which changed medications in his pain pump for fentanyl last time he was programmed to receive 24 mcg of fentanyl per hour as the continuous doses with 20 mcg of fentanyl every 8 hours twice in 24 hour. Today he came for pump adjustment. As a precaution I did not establish item addict boluses for him, however I added to more boluses for him every 4 hours 4 times in 24 hours the same dose of 20 mcg per application. His total dose of fentanyl is 100 micro g over the 24 hour. He reports that he is moving to [place], [place] he is getting closer to his sister. I am sure he can not find our practitioner who will be able to continue refilling his pump. With his current doses of the medications he will have to refill his pump the latest on 05/13/2023. Prior: He complains on urinary retention with current doses of the intrathecal pump. He received morphine intrathecally in combination with bupivacaine and reported severe urinary retention. Even after bupivacaine was removed some episodes of urinary retention patient still was complaining on. I offered the patient to continue with morphine medication and from time to time perform self catheterization to relieve urinary retention. Patient is young 42 years old gentleman and he wants no such thing. He insisted on changing medication to fentanyl. This is less water-soluble opioid medicine with less spread along side the spinal cord. Unlikely it will cause urine retention considering his pump position at T8 vertebral projection. He had pump refill and I started him on minimal dose of continues 23 micro g of fentanyl with doses of fentanyl on demand of 20 micro g and bridge bolus for 37 hours. He will start to receive at the end of Sunday. Only after that we can assess if his urinary retention became better. I will issue new prescription of naloxone just in case of respiratory depression. See the pump refill report below. He reports very good results on the radiofrequency ablation of the genicular nerves he reports better mobility of the knee better activities better social interaction. [facility] Medical History Anxiety Asthma Central stenosis of spinal canal Chronic back pain Chronic pain syndrome Depression Diabetes Elevated cholesterol HTN (hypertension) Neurogenic bladder On pre-exposure prophylaxis for HIV Osteoarthritis Postoperative nausea Surgical History H/O gastric bypass History of back surgery Hx of cholecystectomy Hx of toe surgery Family History Father Myocardial infarction Mother Myocardial infarction Cerebrovascular accident (CVA) COPD (chronic obstructive pulmonary disease) Sister Seizures Brother Cerebrovascular accident (CVA) Social History Household Members Other:: aunt Are you a primary pharmacy customer care specialist to a significant other at home: No Do you presently have visiting nurse or other home services: No Alcohol intake: former Patient Tobacco Use Status: Former Tobacco user Quit Date: 2001 Tobacco use type: Cigarette Review of Systems Const All systems reviewed & are unremarkable except as noted in HPI and below Physical Exam Vital Signs: Last Vital Signs Pulse 110 H 02/21/23 12:03 Resp 17 02/21/23 12:03 BP 142/76 H 02/21/23 12:03 Pulse Ox 97 02/21/23 12:03 Oxygen Delivery Method Room Air 02/21/23 12:03 BMI result Body Mass Index 44.0 Const General: cooperative and no acute distress Nutritional Appearance: obese morbidly obese Orientation/consciousness: patient oriented x3 Resp Effort & Inspection: normal respiratory effort, able to speak in complete sentences and no audible wheezes Back/Spine/Pelvis Other: Morbidly obese Cervical Spine: normal cervical lordosis Thoracic/Lumbar Spine: thoracic and lumbar spine normal to inspection Pelvis: no pain with anterior-posterior compression and no pain with lateral compression Neuro General: patient oriented x3 Psych Mental Status: mental status grossly normal Speech and movement: Clear speech present Attitude: cooperative Assessment & Plan Assessment & Plan (1) Facet arthropathy, lumbar: Code(s): M47.816 - Spondylosis without myelopathy or radiculopathy, lumbar region (2) Post laminectomy syndrome: Code(s): M96.1 - Postlaminectomy syndrome, not elsewhere classified Plan: ?The patient came today in the office for adjustment of the medication in the pain pump. The doses were adjusted to 25 micro g continuous +4 doses on demand 20 mcg every 4 hours no more than 4 doses in 24 hours. Next refill 05/13/2023 or earlier. (3) Morbid obesity: Code(s): E66.01 - Morbid (severe) obesity due to excess calories Plan: The plan of care is as above. He is moving to [place] hopefully he will be able to find care for his pump there. His next refill should be no later than 05/13/2023. He told me that he might like back to [place] to attend our office for pump refill if he does not find anyone in [place]. He reports moderate pain improvement on RFA of the left lower extremity genicular nerves. Pump adjusted today as above. (4) Obstructive sleep apnea: Code(s): G47.33 - Obstructive sleep apnea (adult) (pediatric) (5) Pain in both knees: Code(s): M25.561 - Pain in right knee; M25.562 - Pain in left knee Plan: He reports very good results of the knee radiofrequency ablation. (6) Presence of intrathecal pump: Code(s): Z97.8 - Presence of other specified devices (7) Arthritis of shoulder region, right, degenerative: Code(s): M19.011 - Primary osteoarthritis, right shoulder (8) Central stenosis of spinal canal: Code(s): M48.00 - Spinal stenosis, site unspecified (9) Chronic pain syndrome: Code(s): G89.4 - Chronic pain syndrome Plan PHQ-9 SCORE: 11 OPIOID RISK STRATIFICATION SURVEY SCORE: 24. 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 He is immunocompromised individual. . Coding Level of Care Code Est Pt Level 4 (54366) Procedure Only Diagnoses Facet arthropathy, lumbar M47.816 Post laminectomy syndrome M96.1 Morbid obesity E66.01 Obstructive sleep apnea G47.33 Pain in both knees M25.561; M25.562 Presence of intrathecal pump Z97.8 Arthritis of shoulder region, right, degenerative M19.011 Central stenosis of spinal canal M48.00 Chronic pain syndrome G89.4
== END 2023-02-21 12:15 | disposition home or self-care (01) ==
PROVIDERS: PCP Physician Assistant; Visit Provider Anesthesiology
DX: M47.816 Spondylosis without myelopathy or radiculopathy, lumbar region (principal); M96.1 Postlaminectomy syndrome, not elsewhere classified; E66.01 Morbid (severe) obesity due to excess calories; G47.33 Obstructive sleep apnea (adult) (pediatric); M25.561 Pain in right knee; M25.562 Pain in left knee; Z97.8 Presence of other specified devices; M19.011 Primary osteoarthritis, right shoulder; M48.00 Spinal stenosis, site unspecified; G89.4 Chronic pain syndrome
CPT/HCPCS: 99214

== ENCOUNTER → 2023-02-21 11:11 | Outpatient (BNVA) | payer OTHER, SELFPAY | PROVIDERS: PCP Physician Assistant; Visit Provider Anesthesiology | DX: Z45.42 Encounter for adjustment and management of neurostimulator (principal); M96.1 Postlaminectomy syndrome, not elsewhere classified; M47.816 Spondylosis without myelopathy or radiculopathy, lumbar region; M19.011 Primary osteoarthritis, right shoulder; M25.561 Pain in right knee; M25.562 Pain in left knee; M48.00 Spinal stenosis, site unspecified; G89.4 Chronic pain syndrome; G47.33 Obstructive sleep apnea (adult) (pediatric); E66.01 Morbid (severe) obesity due to excess calories | CPT/HCPCS: 99212 ==

== ENCOUNTER 2023-03-07 14:56 | Outpatient (AMB) | payer OTHER, SELFPAY ==
[2023-03-07 16:14] VITALS: BP 126/80; PULSE 96; RESP 18; O2SAT 97; BMI 44.0
--- NOTE | 2023-03-07 16:14 | MHC.OFFVIS ---
Intake Vital Signs 03/07/23 16:14 Height 6 ft 2 in Weight 343 lb BMI 44.0 BP 126/80 Blood Pressure Location Lt radial Position Sitting Respiration 18 Pulse 96 Pulse Source Pulse Oximeter Pulse Oximetry (%) 97 Oxygen Delivery Method Room Air Intake Visit Reasons: s/p L. Knee RFA & R. Knee Inj. 01/31 Intake Note: patient comes in for post-op. Allergies cephalexin Allergy (Severe, Verified 03/07/23 16:15) vomiting,rash Iodinated Contrast Media [IV DYE, IODINE CONTAINING CONTRAST ] Allergy (Severe, Verified 03/07/23 16:15) DIFFICULTY BREATHING propranolol [PROPRANOLOL] Allergy (Severe, Verified 03/07/23 16:15) DIFFICULTY BREATHING AND CP tramadol [From ULTRAM] Allergy (Severe, Verified 03/07/23 16:15) VOMITING AND SEVERE HEADACHES verapamil Allergy (Severe, Verified 03/07/23 16:15) severe chest pain thuan Allergy (Intermediate, Verified 03/07/23 16:15) RASH naratriptan Allergy (Unknown, Verified 03/07/23 16:15) Unknown penicillin V Allergy (Unknown, Verified 03/07/23 16:15) Pt does not remember Penicillins Allergy (Unknown, Verified 03/07/23 16:15) Unknown rizatriptan Allergy (Unknown, Verified 03/07/23 16:15) Unknown shellfish derived Allergy (Unknown, Verified 03/07/23 16:15) Unknown Sulfa (Sulfonamide Antibiotics) Allergy (Unknown, Verified 03/07/23 16:15) Unknown dexamethasone Allergy (Verified 03/07/23 16:15) Unknown hydromorphone [From Dilaudid] Adverse Reaction (Severe, Verified 03/07/23 16:15) migraine/nausea sumatriptan [From IMITREX] Adverse Reaction (Severe, Verified 03/07/23 16:15) NAUSEA & VOMITING HPI HPI Comments History of Present Illness Details Gil is on the telephone today to discuss the results of the right knee steroid injection in left knee radiofrequency ablation of genicular nerves. He reports excellent results. He reports no pain in the left knee and minimal discomfort in the right knee. He informed me today again that he is moving to [place], [place] to live with his sister. The patient did not find any physician there who would be able to fix his back. Apparently [place] is 1 hour and half away from [place] by flight, I am not sure if he will be able to take those strips to [place] however it might be his only option. I told him that it is his choice if he wants to come back to my office to feel his pump. Prior: He reports that his urinary retention is completely eliminated after which changed medications in his pain pump for fentanyl last time he was programmed to receive 24 mcg of fentanyl per hour as the continuous doses with 20 mcg of fentanyl every 8 hours twice in 24 hour. Today he came for pump adjustment. As a precaution I did not establish item add boluses for him, however I added to more boluses for him every 4 hours 4 times in 24 hours the same dose of 20 mcg per application. His total dose of fentanyl is 100 micro g over the 24 hour. He reports that he is moving to [place], [place] he is getting closer to his sister. I am sure he can not find our practitioner who will be able to continue refilling his pump. With his current doses of the medications he will have to refill his pump the latest on 05/13/2023. Prior: He complains on urinary retention with current doses of the intrathecal pump. He received morphine intrathecally in combination with bupivacaine and reported severe urinary retention. Even after bupivacaine was removed some episodes of urinary retention patient still was complaining on. I offered the patient to continue with morphine medication and from time to time perform self catheterization to relieve urinary retention. Patient is young 42 years old gentleman and he wants no such thing. He insisted on changing medication to fentanyl. This is less water-soluble opioid medicine with less spread along side the spinal cord. Unlikely it will cause urine retention considering his pump position at T8 vertebral projection. He had pump refill and I started him on minimal dose of continues 23 micro g of fentanyl with doses of fentanyl on demand of 20 micro g and bridge bolus for 37 hours. He will start to receive at the end of Sunday. Only after that we can assess if his urinary retention became better. I will issue new prescription of naloxone just in case of respiratory depression. See the pump refill report below. He reports very good results on the radiofrequency ablation of the genicular nerves he reports better mobility of the knee better activities better social interaction. [facility] Medical History Anxiety Asthma Central stenosis of spinal canal Chronic back pain Chronic pain syndrome Depression Diabetes Elevated cholesterol HTN (hypertension) Neurogenic bladder On pre-exposure prophylaxis for HIV Osteoarthritis Postoperative nausea Surgical History H/O gastric bypass History of back surgery Hx of cholecystectomy Hx of toe surgery Family History Father Myocardial infarction Mother Myocardial infarction Cerebrovascular accident (CVA) COPD (chronic obstructive pulmonary disease) Sister Seizures Brother Cerebrovascular accident (CVA) Social History Household Members Other:: aunt Are you a primary plant care worker to a significant other at home: No Do you presently have visiting nurse or other home services: No Alcohol intake: former Patient Tobacco Use Status: Former Tobacco user Quit Date: 2001 Tobacco use type: Cigarette Review of Systems Const All systems reviewed & are unremarkable except as noted in HPI and below Physical Exam Vital Signs: Last Vital Signs Pulse 96 03/07/23 16:14 Resp 18 03/07/23 16:14 BP 126/80 03/07/23 16:14 Pulse Ox 97 03/07/23 16:14 Oxygen Delivery Method Room Air 03/07/23 16:14 BMI result Body Mass Index 44.0 Assessment & Plan Assessment & Plan (1) Facet arthropathy, lumbar: Code(s): M47.816 - Spondylosis without myelopathy or radiculopathy, lumbar region (2) Post laminectomy syndrome: Code(s): M96.1 - Postlaminectomy syndrome, not elsewhere classified Plan: ?The patient came today in the office for adjustment of the medication in the pain pump. The doses were adjusted to 25 micro g continuous +4 doses on demand 20 mcg every 4 hours no more than 4 doses in 24 hours. Next refill 05/13/2023 or earlier. (3) Morbid obesity: Code(s): E66.01 - Morbid (severe) obesity due to excess calories Plan: The plan of care is as above. He is moving to [place] hopefully he will be able to find care for his pump there. His next refill should be no later than 05/13/2023. He told me that he might like back to [place] to attend our office for pump refill if he does not find anyone in [place]. He reports complete pain relief on the left lower extremity RFA genicular nerves and good pain relief from the right knee steroid injection. (4) Obstructive sleep apnea: Code(s): G47.33 - Obstructive sleep apnea (adult) (pediatric) (5) Pain in both knees: Code(s): M25.561 - Pain in right knee; M25.562 - Pain in left knee (6) Presence of intrathecal pump: Code(s): Z97.8 - Presence of other specified devices (7) Arthritis of shoulder region, right, degenerative: Code(s): M19.011 - Primary osteoarthritis, right shoulder (8) Central stenosis of spinal canal: Code(s): M48.00 - Spinal stenosis, site unspecified (9) Chronic pain syndrome: Code(s): G89.4 - Chronic pain syndrome Plan PHQ-9 SCORE: 11 OPIOID RISK STRATIFICATION SURVEY SCORE: 24. 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 He is immunocompromised individual. . Patient Instructions: I here by testify that I spent 15 minutes in conversation with this patient today. Coding Level of Care Code Tele Est Pt Level 3 (40896) Diagnoses Facet arthropathy, lumbar M47.816 Post laminectomy syndrome M96.1 Morbid obesity E66.01 Obstructive sleep apnea G47.33 Pain in both knees M25.561; M25.562 Presence of intrathecal pump Z97.8 Arthritis of shoulder region, right, degenerative M19.011 Central stenosis of spinal canal M48.00 Chronic pain syndrome G89.4
== END 2023-03-07 16:47 | disposition home or self-care (01) ==
PROVIDERS: PCP Physician Assistant; Visit Provider Anesthesiology
DX: M47.816 Spondylosis without myelopathy or radiculopathy, lumbar region (principal); M96.1 Postlaminectomy syndrome, not elsewhere classified; E66.01 Morbid (severe) obesity due to excess calories; Z68.41 Body mass index [BMI] 40.0-44.9, adult; M25.561 Pain in right knee; M25.562 Pain in left knee; Z97.8 Presence of other specified devices; M19.011 Primary osteoarthritis, right shoulder; M48.00 Spinal stenosis, site unspecified; G89.4 Chronic pain syndrome
CPT/HCPCS: 99442

== ENCOUNTER → 2023-03-07 14:56 | Outpatient (BNVA) | payer OTHER, SELFPAY | PROVIDERS: PCP Physician Assistant; Visit Provider Anesthesiology ==